=== PATIENT | female | born 1945 | race Caucasian/White ===

== ENCOUNTER 2024-09-13 09:53 | Inpatient (IN) ==
--- NOTE | 2024-09-13 09:59 | Emergency Department Note ---
HPI - Weakness General Chief complaint: Weakness Stated complaint: General Weakness Time Seen by Provider: 09/13/24 09:58 Source: patient and EMS Mode of arrival: ambulance Limitations: physical limitation Limitations comment: Right-sided BKA History of Present Illness HPI Narrative: Patient and EMS report that patient has been seated in wheelchair x 4 days and has not had care, patient reports she has not eaten or drank anything in 4 days, patient does have a open wound to her left lower leg that is actively draining with serous fluid. MD Complaint: Reports generalized weakness Onset (ago): day(s) (4) Duration: Reports constant Location: Reports generalized Migration: Reports none Severity: moderate Quality: Reports aching Relieving factors: Reports rest and movement Exacerbating factors: Reports exertion Context: Reports other (Patient with unintended by family members per patient) Associated symptoms: Reports dysuria, fever/chills, myalgias and other (Edema) Related Data Allergies Allergy/AdvReac Type Severity Reaction Status Date / Time nalbuphine (From Nubain) Allergy Unknown Verified 09/13/24 10:03 Review of Systems 2 Status of ROS 10 or more systems reviewed and unremark able except as noted in history and below Constitutional Reports: chills and fatigue; Denies: fever, change in weight, malaise, night sweats, change in sleep pattern or other Eyes Denies: change in vision, blurry vision, blind spots, light sensitivity, eye discomfort, eye discharge, dry eyes, increased production of tears, floaters, seeing flashes or decreased night vision Ears, nose, mouth, and throat Denies: throat pain, neck pain, throat swelling, difficulty swallowing, hoarseness, mouth pain, swelling of lips/tongue, dry mouth, bad breath, ear pain, ear discharge, change in hearing, tinnitus, vertigo, nasal discharge, nasal congestion, nose bleeds or post nasal drip Cardiovascular Reports: swelling of feet/ankles, shortness of breath with exertion and shortness of breath when lying down; Denies: chest pain, palpitations, edema, lightheadedness, leg pain with exertion or bluish discoloration of hands/feet Respiratory Reports: shortness of breath and chest congestion; Denies: cough, wheezing, stridor, pain on inspiration, change in phlegm color or coughing up blood Gastrointestinal Reports: abdominal pain and diarrhea; Denies: nausea, vomiting, coffee grounds in vomit, heartburn, constipation, bloating, belching, excessive passing of gas, difficulty swallowing, feeling full early, change in bowel habits, painful bowel movements, rectal pain, rectal swelling, rectal itching, change in stool character, blood in stool, mucus in stool, white/light colored stool or fatty stool Genitourinary Reports: painful urination, urinary frequency and urinary incontinence; Denies: urinary urgency, blood in urine, difficulty voiding, decreased urine ouput, pelvic pain, painful menstruation, vaginal bleeding, vaginal discharge, irregular period, change in menstrual flow, absence of menstruation, genital lesion, genital itching, vaginal dryness, vaginal odor, pain during intercourse, difficulty conceiving or change in libido Musculoskeletal Reports: extremity pain, extremity swelling, joint pain and muscle weakness; Denies: back pain, neck pain, limited range of motion, joint swelling, muscle cramps or loss of height Integumentary/Breast Reports: redness, skin pain, skin tenderness and sores; Denies: rash, itching, skin swelling, new lesion, changing lesion, non-healing lesion, changes in skin color, jaundice, stretch rubin, acne, nail changes, change in hair, breast pain, breast swelling, nipple discharge, breast mass, breast skin changes or change in breast shape Neurological Reports: weakness in extremities; Denies: headache, numbness in extremities, lack of coordination, dizziness, vertigo, confusion, behavioral changes, slurred speech, difficulty communicating thoughts, seizure-like activity or involuntary movements Psychiatric Reports: anxiety; Denies: mood swings, panic attacks, change in sleep pattern, hopelessness, loss of interest, irritability, paranoia, memory loss, difficulty concentrating, visual hallucinations, auditory hallucinations, tactile hallucinations, suicidal ideation or homicidal ideation Endocrine Denies: excessive urination, excessive thirst, fatigue, cold intolerance, excessive sweating, flushing, heat intolerance, deepening of the voice, change in body appearance or change in libido Hematologic/Lymphatic Denies: easy bruising, easy bleeding or enlarged lymph nodes Allergic/Immunologic Denies: hives, throat swelling, tongue swelling, facial swelling, wheezing, itchy eyes, seasonal allergies or food intolerance PFSH PFSH Social History Smoking status: never smoker Non-prescribed substance use: opiods/painkillers Feel stressed/tense/nervous/anxious/difficulty sleeping: rather much Life stressors: other (none) Life stressor details: Current medical condition Due to disability, difficulty making decisions: No Exam 2 Constitutional: normal general appearance, distress noted (moderate), abnormal body habitus (overweight), limitations noted (physical limitations) (Right leg BKA) and alert Vital Signs - 24 hr 09/13/24 09:53 09/13/24 10:00 09/13/24 11:45 Temperature 98.1 F Pulse Rate 95 H 98 H 100 H Respiratory Rate 18 18 18 Blood Pressure 130/66 130/66 173/81 Pulse Oximetry 98 98 98 Oxygen Delivery Me thod Room Air Room Air Room Air 09/13/24 12:00 09/13/24 12:36 Temperature Pulse Rate 98 H 104 H Respiratory Rate 18 Blood Pressure 178/81 184/85 Pulse Oximetry 98 Oxygen Delivery Me thod Room Air HENMT: normocephalic, head/scalp atraumatic, hearing grossly normal bilaterally, external ears normal, EACs normal, nasal mucous membranes normal, external nose normal, oral mucous membranes normal, oropharynx normal, dentition normal and gingiva normal Eyes: PERRL, EOMs intact bilaterally, conjunctivae normal, no scleral icterus, no papilledema, normal visual bowman by confrontation, alignment normal, periorbital findings normal and no nystagmus Neck/C-Spine: visual inspection normal, trachea midline, cervical spine nontender, cervical full ROM noted and supple Lymph: no lymphadenopathy noted and no lymphedema noted Chest: inspection of chest normal, palpation of chest normal, inspection of breast(s) abnormal (deferred) and palpation of breast(s) abnormal (deferred) Respiratory: breath sounds equal bilaterally, abnormal respiratory effort (labored), clear to auscultation bilaterally, no wheezes, no rales, no retractions and no use of accessory muscles Cardiovascular: heart rate abnormal (110) (tachycardic), rhythm abnormal (irregular), no gallop, no rub, no murmur, no JVD, no clicks, peripheral pulses 2+ throughout and no additional abnormal heart sounds Gastrointestinal: abdomen normal to inspection, abdomen soft to palpation, tender to palpation, nontender to percussion, nondistended, normoactive bowel sounds, no hepatosplenomegaly, no masses, no pulsatile mass, no ascites, no hernia and rectal exam abnormal (deferred) Patient has edema noted to the lower abdomen with excoriation of the skin, patient smelled strongly of urine after being left sitting in wheelchair for 4 days without care. Patient has been cleaned wounds have been cleaned. Patient has +2 pitting edema of the abdomen on the left side. Genitourinary: no CVA tenderness, bladder normal to palpation, vaginal abnormality noted (deferred) and cervical abnormality noted (deferred) Back/Pelvis: spine normal to inspection, no thoracic spine tenderness, no lumbar spine tenderness, thoracic spine ROM normal, lumbar spine ROM normal and no paraspinal muscle tenderness noted Extremities: normal to inspection, abnormal to palpation, tenderness noted, full ROM, no joint enlargement and no deformity Patient has +3 pitting edema to the left lower extremity with noted draining wound, cellulitis present, her leg is erythemic and tender to palpation. Neurology: cra II-XII intact, no movement abnormality noted, no focal motor deficit noted, no sensory deficits noted, gait abnormality noted (unable to access), speech normal, coordination normal, no pronator drift noted, no fasciculations noted and GCS normal Psychiatry: Mental Status Exam documented within this Exam's Psych section mental status grossly normal, oriented x3, thought process normal, cooperative, affect normal, psychomotor activity normal and memory normal Feel stressed/tense/nervous/anxious/difficulty sleeping: rather much Life stressors: other (none) Life stressor details: Current medical condition Due to disability, difficulty making decisions: No Skin: skin color abnormal (Left lower leg) Reports (erythema), no rash, no lesions, no ecchymosis noted, no wounds, no lacerations, skin turgor normal, no jaundice, no petechiae, no mottling, nails normal and no alopecia Patient has a noted pressure wound to the Right buttock, cellulitis of the left lower extremity with draining from the wound noted, pitting edema up through the left leg into the left thigh and lower left abdomen. Image: Body (4 view): 1. Pressure wound 2. Erythema, cellulitis, drainage Course Course Hospital Course: 78-year-old female presented to ER via EMS with complaint of generalized weakness, cellulitis of the left lower leg, and being left without care x 4 days by her straw hat brusher has been evaluated by physical exam, CBC, CMP, urinalysis, blood culture, wound culture, EKG, ABG, plain film chest x-ray, and hemoglobin A1c with results as noted in charting. Patient's CBC reveals leukocytosis at 13.5 white count, CMP reveals hypoalbuminemia at 2.6, acute kidney injury with BUN of 32, urinalysis reveals UTI with leukoesterase and nitrite positive, patient's lactic acid is elevated at 2.5, and patient is EKG reveals atrial field and a rate of 110 as a result of patient not receiving her Cardizem at home x 4 days. [facility] with diagnosis of urinary tract infection, sepsis, leukocytosis, acute kidney injury, Cellulitis, hypoalbuminemia, and atrial fib. EMS has notified law enforcement concern is patient for referral to Adult Protective Services. Vital Signs Vital signs: Vital Signs Temperature 98.1 F 09/13/24 09:53 Pulse Rate 95 H 09/13/24 09:53 Respiratory Rate 18 09/13/24 09:53 Blood Pressure 130/66 09/13/24 09:53 Pulse Oximetry 98 09/13/24 09:53 Oxygen Delivery Method Room Air 09/13/24 09:53 Temperature 98.1 F 09/13/24 09:53 Pulse Rate 104 H 09/13/24 12:36 Respiratory Rate 18 09/13/24 12:00 Blood Pressure 184/85 09/13/24 12:36 Pulse Oximetry 98 09/13/24 12:00 Oxygen Delivery Method Room Air 09/13/24 12:00 MDM - Weakness MDM Narrative Medical decision making narrative: Medical Decision Making this patient above physical exam, CBC, CMP, urinalysis, EKG, troponin, lactic acid, ABG, blood culture, wound culture, hemoglobin A1c, and plain film chest x-ray. Differential Diagnosis Differential diagnosis: Likely acute myocardial infarction, rhabdomyolysis, sepsis, dehydration and other (Cellulitis, peripheral edema) Medical Records Attestation: I reviewed the patient's medical records. Lab Data Attestation: I reviewed the patient's lab results. Labs: Lab Results 09/13/24 09/13/24 09/13/24 Range/Units 10:26 10:31 10:31 WBC (4.3-9.3) K/uL RBC (4.00-5.50) M/uL Hgb (12.5-15.8) gm/dL Hct (35.9-46.7) % MCV (81.0-93.7) fl MCH (27.6-32.2) pg MCHC (33.1-35.3) g/dl RDW (11.4-14.2) % Plt Count (152-353) K/uL MPV (6.9-10.8) fl Gran % (47.8-71.3) % Lymph % (Auto) (20.0-43.0) % [place]enson % (Auto) (3.6-9.8) % Eos % (Auto) (0.4-2.8) % Baso % (Auto) (0.1-0.85) Lymph # (Auto) (1.1-3.1) Dickenson # (Auto) (1.1-3.1) Eos # (Auto) (0.0-0.2) Baso # (Auto) (0.0-0.1) Absolute Gran (auto) (2.3-6.0) ABG pH 7.50 H (7.35-7.45) ABG pCO2 42 (35-45) mmHg ABG pO2 101 H 147 (60-100) mmHg ABG PO2/FiO2 Ratio 0.69 ABG HCO3 32.8 H (22-26) mmo1/L ABG Total CO2 34.1 mmo1/L ABG O2 Saturation 98 (92-100) % ABG Base Excess 8.7 H (-2-2) mmo1/L A-a O2 Gradient 46 mmHg Respiratory Index 0.5 (0-1) FiO2 28 % Sodium (136-145) mmol/L Potassium (3.6-5.2) mmol/L Chloride (98-107) mmol/L Carbon Dioxide (21-32) mmol/L Anion Gap (4-14) mEq/L BUN (7-18) mg/dL Creatinine (0.6-1.3) mg/dL Estimated GFR (>59.9) Glucose (70-110) mg/dL Hemoglobin A1c (4.8-6.0) % Lactic Acid (0.27-1.43) mmol/L Calcium (8.5-10.1) mg/dL Magnesium (1.8-2.4) mg/dL Total Bilirubin (0.0-1.0) mg/dL AST (15-37) U/L ALT (30-65) U/L Alkaline Phosphatase (50-136) U/L Total Creatine Kinase (26-192) U/L Troponin I High Sens (4.0-60.4) ng/L B-Natriuretic Peptide (0-100) pg/mL Total Protein (6.4-8.2) g/dL Albumin (3.4-5.0) g/dL Urine Color Yellow (STRAW/YELL.) Urine Appearance Hazy (CLEAR) Ur Specific [place] 1.030 (1.001-1.035) Urine Protein 1+ (NEGATIVE) Urine Glucose (UA) Normal (NORMAL) Urine Ketones Negative (NEGATIVE) Urine Occult Blood Trace (NEG - TRACE) Urine Nitrite Negative (NEGATIVE) Urine Bilirubin Negative (NEGATIVE) Urine Urobilinogen Normal (NORMAL) Ur Leukocyte Esterase Positive (NEGATIVE) Urine RBC 0 - 2 (0 - 5) Urine WBC 10 - 25 ( 0 - 5) Ur Epithelial Cells Few (Few/HPF) Amorphous Sediment Negative (Negative) Urine Bacteria Many (Negative) Urine Mucus Negative (Negative) Urine Trichomonas Negative (Negative) Urine Yeast Negative (Negative) Fluid pH 6.0 (5 - 9) 09/13/24 09/13/24 Range/Units 10:35 10:50 WBC 13.5 H (4.3-9.3) K/uL RBC 4.0 (4.00-5.50) M/uL Hgb 11.1 L (12.5-15.8) gm/dL Hct 35.0 L (35.9-46.7) % MCV 86.8 (81.0-93.7) fl MCH 27.6 (27.6-32.2) pg MCHC 31.8 L (33.1-35.3) g/dl RDW 18.1 H (11.4-14.2) % Plt Count 240 (152-353) K/uL MPV 7.8 (6.9-10.8) fl Gran % 82.3 H (47.8-71.3) % Lymph % (Auto) 12.4 L (20.0-43.0) % Dickenson % (Auto) 4.6 (3.6-9.8) % Eos % (Auto) 0.2 L (0.4-2.8) % Baso % (Auto) 0.5 (0.1-0.85) Lymph # (Auto) 1.7 (1.1-3.1) Dickenson # (Auto) 0.6 L (1.1-3.1) Eos # (Auto) 0.0 (0.0-0.2) Baso # (Auto) 0.1 (0.0-0.1) Absolute Gran (auto) 11.1 H (2.3-6.0) ABG pH (7.35-7.45) ABG pCO2 (35-45) mmHg ABG pO2 (60-100) mmHg ABG PO2/FiO2 Ratio ABG HCO3 (22-26) mmo1/L ABG Total CO2 mmo1/L ABG O2 Saturation (92-100) % ABG Base Excess (-2-2) mmo1/L A-a O2 Gradient mmHg Respiratory Index (0-1) FiO2 % Sodium 139 (136-145) mmol/L Potassium 4.3 (3.6-5.2) mmol/L Chloride 103.0 (98-107) mmol/L Carbon Dioxide 33 H (21-32) mmol/L Anion Gap 3.0 L (4-14) mEq/L BUN 32 H (7-18) mg/dL Creatinine 1.1 (0.6-1.3) mg/dL Estimated GFR 52.1 (>59.9) Glucose 126 H (70-110) mg/dL Hemoglobin A1c 6.8 H (4.8-6.0) % Lactic Acid 2.7 H (0.27-1.43) mmol/L Calcium 8.5 (8.5-10.1) mg/dL Magnesium 2.5 H (1.8-2.4) mg/dL Total Bilirubin 1.43 H (0.0-1.0) mg/dL AST 21 (15-37) U/L ALT 31 (30-65) U/L Alkaline Phosphatase 98 (50-136) U/L Total Creatine Kinase 62 (26-192) U/L Troponin I High Sens 42.80 (4.0-60.4) ng/L B-Natriuretic Peptide 91.2 (0-100) pg/mL Total Protein 6.2 L (6.4-8.2) g/dL Albumin 2.6 L (3.4-5.0) g/dL Urine Color (STRAW/YELL.) Urine Appearance (CLEAR) Ur Specific [place] (1.001-1.035) Urine Protein (NEGATIVE) Urine Glucose (UA) (NORMAL) Urine Ketones (NEGATIVE) Urine Occult Blood (NEG - TRACE) Urine Nitrite (NEGATIVE) Urine Bilirubin (NEGATIVE) Urine Urobilinogen (NORMAL) Ur Leukocyte Esterase (NEGATIVE) Urine RBC (0 - 5) Urine WBC ( 0 - 5) Ur Epithelial Cells (Few/HPF) Amorphous Sediment (Negative) Urine Bacteria (Negative) Urine Mucus (Negative) Urine Trichomonas (Negative) Urine Yeast (Negative) Fluid pH (5 - 9) Discharge Plan Discharge Patient Disposition: Admitted As Observation Condition: Stable Chief Complaint: Weakness Clinical Impression: Sepsis, Urinary tract infection, Cellulitis and abscess of left leg, Hypoalbuminemia, Acute kidney injury, Leukocytosis, Decubitus skin ulcer Print Language: Irish Referrals: Provider,NO PCP [Primary Care Provider] - Time of Disposition: 12:00
[2024-09-13 10:52] LABS: Urine Appearance HAZY (CLEAR); Urine Blood TRACE (NEG - TRACE); Urine Color YELLOW (STRAW/YELL.); Urine Urobilinogen Normal (NORMAL)
[2024-09-13 10:53] LABS: Urine Amorphous Sediment Negative (Negative); Urine Yeast Negative (Negative)
[2024-09-13 10:58] LABS: Basophils #(Absolute) Auto 0.1 (0.0-0.1); Basophils%(Percent) Auto 0.5 (0.1-0.85); Eosinophils%(Percent) Auto 0.2 % (0.4-2.8); Granulocytes % - Auto 82.3 % (47.8-71.3); Granulocytes#(Absolute)- Auto 11.1 (2.3-6.0); Mean Corpuscular Volume 86.8 fl (81.0-93.7); Monocytes #(Absolute)- Auto 0.6 (1.1-3.1); Monocytes %(Percent)- Auto 4.6 % (3.6-9.8); Platelet Count 240 K/uL (152-353); White Blood Count 13.5 K/uL (4.3-9.3)
[2024-09-13 10:58] LABS: PCO2 ABG 42 mmHg (35-45); PO2 ABG 101 mmHg (60-100)
[2024-09-13 10:59] LABS: Base Excess ABG 8.7 mmo1/L (-2-2); Oxygen Saturation ABG 98 % (92-100)
[2024-09-13 11:08] LABS: Potassium 4.3 mmol/L (3.6-5.2)
[2024-09-13] MEDS ORDERED: 0.9 % SODIUM CHLORIDE MB+ 50 ML IV ONE (11:34)
[2024-09-13] MEDS ORDERED: MEROPENEM 1 GM VIAL IV ONE (11:34)
[2024-09-13] MEDS: MEROPENEM 1 GM VIAL 1 GM in 0.9 % SODIUM CHLORIDE MB+ 50 ML IV STA (11:37)
[2024-09-13] MEDS ORDERED: ALBUMIN HUMAN 25% 100 ML IV SCH (12:00)
[2024-09-13] MEDS ORDERED: ALBUMIN HUMAN 25% 100 ML IV ONE (12:04)
[2024-09-13] MEDS: ALBUMIN HUMAN 25% 100 ML IV ONE (12:06)
[2024-09-13] MEDS: DILTIAZEM HCL 180 MG PO STA ×2 (12:36→12:52)
[2024-09-13] MEDS ORDERED: bisacodyL 10 MG SUPP.RECT PR PRN (14:00)
[2024-09-13] MEDS ORDERED: PROMETHAZINE HCL 25 MG in 0.9 % SODIUM CHLORIDE 50 ML IV PRN (14:00)
[2024-09-13] MEDS ORDERED: ONDANSETRON HCL/PF 4 MG/2 ML VIAL INJ PRN (14:00)
[2024-09-13] MEDS ORDERED: MAGNESIUM, ALUMINUM HYDROXIDE 30 ML ORAL.SUSP PO PRN (14:00)
[2024-09-13] MEDS: PANTOPRAZOLE SODIUM 40 MG VIAL IVP SCH (14:27)
[2024-09-13] MEDS: CLINDAMYCIN PHOSPHATE/D5W 300 MG/50 ML PIGGYBACK IV SCH (14:27)
[2024-09-13] MEDS: ALBUMIN HUMAN 25% 100 ML IV SCH ×2 (14:27→16:07)
[2024-09-13] MEDS: KETOROLAC 30 MG/ML INJ VIAL IVP PRN (14:28)
--- NOTE | 2024-09-13 14:41 | History & Physical Report ---
H&P: HPI History of Present Illness Chief complaint: SEPSIS,UTI,LEUKOCYTOSIS,CELLULITIS,ACUTE KIDNEY IN Narrative: Patient and EMS report that patient has been seated in wheelchair x 4 days and has not had care, patient reports she has not eaten or drank anything in 4 days, patient does have a open wound to her left lower leg that is actively draining with serous fluid. Admitted patient to med/surg for observation and treatment. Review of Systems Status of ROS 10 or more systems reviewed and unremark able except as noted in history and below Constitutional Reports: chills; Denies: fever, change in weight, fatigue, malaise, night sweats, change in sleep pattern or other Eyes Denies: change in vision, blurry vision, blind spots, light sensitivity, eye discomfort, eye discharge, dry eyes, increased production of tears, floaters, seeing flashes or decreased night vision Ears, nose, mouth, and throat Denies: throat pain, neck pain, throat swelling, difficulty swallowing, hoarseness, mouth pain, swelling of lips/tongue, dry mouth, bad breath, ear pain, ear discharge, change in hearing, tinnitus, vertigo, nasal discharge, nasal congestion, nose bleeds or post nasal drip Cardiovascular Reports: swelling of feet/ankles, shortness of breath with exertion and shortness of breath when lying down; Denies: chest pain, palpitations, edema, lightheadedness, leg pain with exertion or bluish discoloration of hands/feet Respiratory Reports: shortness of breath and chest congestion; Denies: cough, wheezing, stridor, pain on inspiration, change in phlegm color or coughing up blood Gastrointestinal Reports: abdominal pain and diarrhea; Denies: nausea, vo miting, coffee grounds in vomit, heartburn, constipation, bloating, belching, excessive passing of gas, difficulty swallowing, feeling full early, change in bowel habits, painful bowel movements, rectal pain, rectal swelling, rectal itching, change in stool character, blood in stool, mucus in stool, white/light colored stool or fatty stool Genitourinary Reports: painful urination, urinary frequency and urinary incontinence; Denies: urinary urgency, blood in urine, difficulty voiding, decreased urine ouput, pelvic pain, painful menstruation, vaginal bleeding, vaginal discharge, irregular period, change in menstrual flow, absence of menstruation, genital lesion, genital itching, vaginal dryness, vaginal odor, pain during intercourse, difficulty conceiving or change in libido Musculoskeletal Reports: extremity pain, extremity swelling, joint pain and muscle weakness; Denies: back pain, neck pain, limited range of motion, joint swelling, muscle cramps or loss of height Integumentary/Breast Reports: redness, skin pain, skin tenderness and sores; Denies: rash, itching, skin swelling, new lesion, changing lesion, non-healing lesion, changes in skin color, jaundice, stretch rubin, acne, nail changes, change in hair, breast pain, breast swelling, nipple discharge, breast mass, breast skin changes or change in breast shape Neurological Reports: weakness in extremities; Denies: headache, numbness in extremities, lack of coordination, dizziness, vertigo, confusion, behavioral changes, slurred speech, difficulty communicating thoughts, seizure-like activity or involuntary movements Psychiatric Reports: anxiety; Denies: mood swings, panic attacks, change in sleep pattern, hopelessness, loss of interest, irritability, paranoia, memory loss, difficulty concentrating, visual hallucinations, auditory hallucinations, tactile hallucinations, suicidal ideation or homicidal ideation Endocrine Denies: excessive urination, excessive thirst, fatigue, cold intolerance, excessive sweating, flushing, heat intolerance, deepening of the voice, change in body appearance or change in libido Hematologic/Lymphatic Denies: easy bruising, easy bleeding or enlarged lymph nodes Allergic/Immunologic Denies: hives, throat swelling, tongue swelling, facial swelling, wheezing, itchy eyes, seasonal allergies or food intolerance [facility] Medical History (Updated 09/13/24 @ 20:42 by Yumiko Shannon DO) Chronic systolic (congestive) heart failure Physical debility Anxiety 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 Hypertension (Unknown) GERD with esophagitis Morbid obesity Surgical History (Updated 09/13/24 @ 20:37 by Yumiko Shannon DO) History of right above knee amputation Social History Smoking status: never smoker Non-prescribed substance use: opiods/painkillers Problems where you live: no known problems Highest level of school completed/degree received: College Feel stressed/tense/nervous/anxious/difficulty sleeping: rather much Life stressors: other (none) Life stressor details: Current medical condition Due to disability, difficulty making decisions: No Meds Home Medications and Allergies Home Medications Medication Instructions Recorded Confirmed Type alprazolam 0.5 mg tablet 0.5 mg PO BID PRN ANXIETY AND 09/13/24 09/13/24 History RESTLESSNESS dexamethasone 4 mg tablet 4 mg PO DAILY 09/13/24 09/13/24 History diltiazem HCl 180 mg 180 mg PO DAILY 09/13/24 09/13/24 History capsule,extended release 24 hr escitalopram oxalate 20 mg tablet 20 mg PO DAILY 09/13/24 09/13/24 History furosemide 40 mg tablet 40 mg PO DAILY 09/13/24 09/13/24 History gabapentin 100 mg capsule 100 mg PO Q8H 09/13/24 09/13/24 History methadone 10 mg tablet 10 mg PO QID PRN severe pain 09/13/24 09/13/24 History (scale score 7-10) omeprazole 20 mg capsule,delayed 20 mg PO BID 09/13/24 09/13/24 History release silver sulfadiazine 1 % topical 1 applic topical BID 09/13/24 09/13/24 History cream Allergies Allergy/AdvReac Type Severity Reaction Status Date / Time nalbuphine (From Kybernesis) Allergy Unknown Verified 09/13/24 10:03 Exam Exam: Patient in beard's position. Constitutional: normal general appearance, distress noted (moderate), abnormal body habitus (overweight), limitations noted (physical limitations) (Right leg BKA) and alert Vital Signs - 24 hr 09/13/24 09:53 09/13/24 10:00 09/13/24 11:45 Temperature 98.1 F Pulse Rate 95 H 98 H 100 H Respiratory Rate 18 18 18 Blood Pressure 130/66 130/66 173/81 Pulse Oximetry 98 98 98 Oxygen Delivery Me thod Room Air Room Air Room Air 09/13/24 12:00 09/13/24 12:36 09/13/24 13:52 Temperature Pulse Rate 98 H 104 H 98 H Respiratory Rate 18 18 Blood Pressure 178/81 184/85 162/85 Pulse Oximetry 98 98 Oxygen Delivery Me thod Room Air HENMT: normocephalic, head/scalp atraumatic, hearing grossly normal bilaterally, external ears normal, EACs normal, nasal mucous membranes normal, external nose normal, oral mucous membranes normal, oropharynx normal, dentition normal and gingiva normal Eyes: PERRL, EOMs intact bilaterally, conjunctivae normal, no scleral icterus, no papilledema, normal visual bowman by confrontation, alignment normal, periorbital findings normal and no nystagmus Neck/C-Spine: visual inspection normal, trachea midline, cervical spine nontender, cervical full ROM noted and supple Lymph: no lymphadenopathy noted and no lymphedema noted Chest: inspection of chest normal, palpation of chest normal, inspection of breast(s) abnormal (deferred) and palpation of breast(s) abnormal (deferred) Respiratory: breath sounds equal bilaterally, abnormal respiratory effort (labored), clear to auscultation bilaterally, no wheezes, no rales, no retractions and no use of accessory muscles Cardiovascular: heart rate abnormal (tachycardic), rhythm abnormal (irregular), no gallop, no rub, no murmur, no JVD, no clicks, peripheral pulses 2+ throughout and no additional abnormal heart sounds Gastrointestinal: abdomen normal to inspection, abdomen soft to palpation, tender to palpation, nontender to percussion, nondistended, normoactive bowel sounds, no hepatosplenomegaly, no masses, no pulsatile mass, no ascites, no hernia and rectal exam abnormal (deferred) Patient has edema noted to the lower abdomen with excoriation of the skin, pa tient smelled strongly of urine after being left sitting in wheelchair for 4 days without care. Patient has been cleaned wounds have been cleaned. Patient has +2 pitting edema of the abdomen on the left side. Genitourinary: no CVA tenderness, bladder normal to palpation, external appearance normal, vaginal abnormality noted (deferred) and cervical abnormality noted (deferred) Back/Pelvis: spine normal to inspection, no thoracic spine tenderness, no lumbar spine tenderness, thoracic spine ROM normal, lumbar spine ROM normal, no paraspinal muscle tenderness noted and straight leg raise negative bilaterally Extremities: normal to inspection, abnormal to palpation, tenderness noted, full ROM, no joint enlargement and no deformity Patient has +3 pitting edema to the left lower extremity with noted draining wound, cellulitis present, her leg is erythemic and tender to palpation. Neurology: call center recruiter II-XII intact, no movement abnormality noted, no focal motor deficit noted, no sensory deficits noted, deep tendon reflexes 2+ bilaterally, gait abnormality noted (unable to access), speech normal, coordination normal, no pronator drift noted, no fasciculations noted and GCS normal Psychiatry: Mental Status Exam documented within this Exam's Psych section mental status grossly normal, oriented x3, thought process normal, cooperative, affect normal, psychomotor activity normal and memory normal Skin: skin color abnormal (Left lower leg) Reports (erythema), no rash, no lesions, no ecchymosis noted, no wounds, no lacerations, skin turgor normal, no jaundice, no petechiae, no mottling, nails normal and no alopecia Patient has a noted pressure wound to the Right buttock, cellulitis of the left lower extremity with draining from the wound noted, pitting edema up through the left leg into the left thigh and lower left abdomen. Assessment and Plan Assessment and Plan (1) UTI (urinary tract infection): Qualifiers: Hematuria presence: with hematuria Urinary tract infection type: site unspecified Qualified Code(s): N39.0 - Urinary tract infection, site not specified; R31.9 - Hematuria, unspecified Code(s): N39.0 - Urinary tract infection, site not specified (2) Cellulitis of left lower extremity: Code(s): L03.116 - Cellulitis of left lower limb (3) ARF (acute respiratory failure): Qualifiers: Respiratory failure complication: unspecified whether with hypoxia or hypercapnia Qualified Code(s): J96.00 - Acute respiratory failure, unspecified whether with hypoxia or hypercapnia Code(s): J96.00 - Acute respiratory failure, unspecified whether with hypoxia or hypercapnia (4) Atrial fibrillation with RVR: Code(s): I48.91 - Unspecified atrial fibrillation (5) Morbid obesity: Code(s): E66.01 - Morbid (severe) obesity due to excess calories (6) Sinus tachycardia: Code(s): R00.0 - Tachycardia, unspecified (7) GERD with esophagitis: Qualifiers: Esophagitis bleeding: without hemorrhage Qualified Code(s): K21.00 - Gastro-esophageal reflux disease with esophagitis, without bleeding Code(s): K21.00 - Gastro-esophageal reflux disease with esophagitis, without bleeding (8) Hypertension: Onset Date: Unknown Qualifiers: Hypertension type: primary hypertension Qualified Code(s): I10 - Essential (primary) hypertension Code(s): I10 - Essential (primary) hypertension (9) 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: Code(s): Z91.148 - Patient's other noncompliance with medication regimen for other reason (10) Anxiety: Code(s): F41.9 - Anxiety disorder, unspecified (11) Confusion: Code(s): R41.0 - Disorientation, unspecified (12) Physical debility: Code(s): R53.81 - Other malaise Plan 0.9% NS at 83 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 Albumin 100 mls @ 60 mls/hr IV Q2H neuro checks every 4 hours and prn clean left leg and elevate and compression wrap as tolerated TSH, BNPeptie, CBC, CMP, MAG, PHOS in the am Pantoprazole Sodium 40 mg IVP DAILY Meropenem 1 gm in Sodium Chloride 50mls @ 100 mls/hr IV Q8H Clindamycin Phosphate/Dextrose 300 mg in 50 mls @ 50 mls/hr IV Q6H Magnesium Hydroxide 30 ml PO DAILY PRN Bisacodyl 10 mg UT DAILY PRN Ketorolac Tromethamine 15 mg IVP Q6H PRN Ondansetron Hcl 4 mg INJ Q6H PRN Promethazine Hcl 25 mg in Sodium Chloride 51 mls @ 200 mls/hr IV Q8H PRN Acetaminophen 1,000 mg in 100 mls @ 400 mls/hr IV Q6H PRN Results Labs Labs: CBC 09/13/24 Range/Units 10:35 WBC 13.5 H (4.3-9.3) K/uL RBC 4.0 (4.00-5.50) M/uL Hgb 11.1 L (12.5-15.8) gm/dL Hct 35.0 L (35.9-46.7) % Plt Count 240 (152-353) K/uL Gran % 82.3 H (47.8-71.3) % Lymph % (Auto) 12.4 L (20.0-43.0) % [place] % (Auto) 4.6 (3.6-9.8) % Eos % (Auto) 0.2 L (0.4-2.8) % Baso % (Auto) 0.5 (0.1-0.85) Lymph # (Auto) 1.7 (1.1-3.1) [place] # (Auto) 0.6 L (1.1-3.1) Eos # (Auto) 0.0 (0.0-0.2) Baso # (Auto) 0.1 (0.0-0.1) Absolute Gran (auto) 11.1 H (2.3-6.0) CMP 09/13/24 10:35 Sodium 139 Potassium 4.3 Chloride 103.0 Carbon Dioxide 33 H BUN 32 H Creatinine 1.1 Glucose 126 H Calcium 8.5 Cardiac Enzymes 09/13/24 10:35 Total Creatine Kinase 62 Liver Function 09/13/24 Range/Units 10:35 Total Bilirubin 1.43 H (0.0-1.0) mg/dL AST 21 (15-37) U/L ALT 31 (30-65) U/L Alkaline Phosphatase 98 (50-136) U/L Albumin 2.6 L (3.4-5.0) g/dL Urine 09/13/24 10:26 Urine Color Yellow Urine Appearance Hazy Ur Specific [place] 1.030 Urine Protein 1+ Urine Glucose (UA) Normal ABG ABG results: 09/13/24 10:31 ABG pH 7.50 H ABG pCO2 42 ABG pO2 147 ABG HCO3 32.8 H ABG Total CO2 34.1 ABG O2 Saturation 98 ABG Base Excess 8.7 H Imaging Imaging ordered: Chest x-ray Radiologist's impression: XR CHEST 1V Date of Service: 09/13/24 HISTORY: dyspneadyspnea; COMPARISON: January 13, 2023 FINDINGS: The trachea is midline. The cardiac silhouette is borderline or mildly enlarged. The lungs are clear without focal infiltrate or effusion. The bony thorax is unremarkable. IMPRESSION: No acute cardiopulmonary disease.
[2024-09-13] MEDS: MEPERIDINE HCL/PF 25 MG/ML SYRINGE IVP PRN (19:50)
[2024-09-13] MEDS: MEROPENEM 1 GM VIAL 1 GM in 0.9 % SODIUM CHLORIDE MB+ 50 ML IV SCH (19:50)
[2024-09-13] MEDS: 0.9 % SODIUM CHLORIDE 1000 ML 1,000 ML IV SCH (21:06)
[2024-09-13] MEDS: GABAPENTIN 100 MG CAPSULE PO SCH (21:06)
[2024-09-13] MEDS: ACETAMINOPHEN 1000 MG/100 ML 1,000 MG/100 ML IV.SOLN IV PRN (23:18)
[2024-09-14 05:16] LABS: Basophils%(Percent) Auto 0.3 (0.1-0.85); Eosinophils%(Percent) Auto 0.5 % (0.4-2.8); Granulocytes % - Auto 79.5 % (47.8-71.3); Hematocrit 24.4 % (35.9-46.7); Mean Corpuscular Volume 86.3 fl (81.0-93.7); Monocytes #(Absolute)- Auto 0.3 (1.1-3.1); Monocytes %(Percent)- Auto 4.1 % (3.6-9.8); Platelet Count 131 K/uL (152-353); White Blood Count 7.6 K/uL (4.3-9.3)
[2024-09-14 05:36] LABS: Potassium 3.8 mmol/L (3.6-5.2)
[2024-09-14] MEDS: ESCITALOPRAM OXALATE 10 MG TABLET PO SCH (08:56)
[2024-09-14] MEDS: DILTIAZEM HCL 180 MG PO SCH (08:56)
[2024-09-14] MEDS ORDERED: ESCITALOPRAM OXALATE 20 MG PO SCH (09:00)
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
[2024-09-14] MEDS: VANCOMYCIN HCL 1,000 MG in 0.9 % SODIUM CHLORIDE 250 ML IV SCH (11:31)
[2024-09-14] MEDS: NYSTATIN 15 GM POWDER TOPICAL SCH (12:03)
[2024-09-14] MEDS: FLUCONAZOLE-NACL 200 MG/100 ML 200 MG/100 ML PIGGYBACK IV SCH (12:03)
[2024-09-14] MEDS: VANCOMYCIN/WATER 1.25 GM 1.25 GM/250 ML PIGGYBACK IV SCH (13:10)
[2024-09-14] MEDS: MEROPENEM 1 GM VIAL 1 GM in 0.9 % SODIUM CHLORIDE MB+ 50 ML IV SCH (20:26)
[2024-09-15 07:07] LABS: Basophils%(Percent) Auto 0.4 (0.1-0.85); Eosinophils#(Absolute)Auto 0.1 (0.0-0.2); Granulocytes % - Auto 70.5 % (47.8-71.3); Granulocytes#(Absolute)- Auto 4.8 (2.3-6.0); Mean Corpuscular Volume 87.4 fl (81.0-93.7); Monocytes #(Absolute)- Auto 0.4 (1.1-3.1); Monocytes %(Percent)- Auto 6.3 % (3.6-9.8); Platelet Count 125 K/uL (152-353); White Blood Count 6.9 K/uL (4.3-9.3)
[2024-09-15 07:16] LABS: Potassium 3.5 mmol/L (3.6-5.2)
[2024-09-15] MEDS: ALBUMIN HUMAN 25% 100 ML IV SCH (09:35)
[2024-09-15] MEDS: POTASSIUM CHLORIDE 20 MEQ TAB.ER.PRT PO ONE (09:36)
--- NOTE | 2024-09-15 11:17 | Progress Note ---
Progress Note: Subjective Subjective Interval history: Hospital day 4 Patient had an uneventful night. She is requesting "Methadone", stating she is use to taking that 4 times a day. MRI reflects infection is not in bones so no osteomyelitis Patient continues to wear unaboots remain afebrile and more alert and talking more coherently at this time. still agreeing to rehab once she is approved Exam 2 Exam: Patient in supine position with RED HAT ENGINEER at bedside changing brief. Constitutional: abnormal general appearance (disheveled), (chronically ill) and (frail appearing), no apparent distress, abnormal body habitus (obese), limitations noted (physical limitations) (Right leg BKA) and alert Vital Signs - 24 hr 09/14/24 12:00 09/14/24 16:00 09/14/24 19:50 Temperature 97.9 F 98.2 F 100.1 F H Pulse Rate [Left F emoral] 84 67 76 Respiratory Rate 19 18 19 Blood Pressure [Le ft Arm] 106/46 125/56 119/69 Pulse Oximetry 100 Oxygen Delivery Me thod Room Air Room Air Room Air 09/14/24 23:42 09/15/24 03:43 09/15/24 08:00 Temperature 99.4 F 98.7 F 97.6 F Pulse Rate [Left F emoral] 83 87 81 Respiratory Rate 19 21 19 Blood Pressure [Le ft Arm] 115/50 111/61 128/50 Pulse Oximetry 94 L 100 90 L Oxygen Delivery Me thod Room Air Room Air Room Air HENMT: normocephalic, head/scalp atraumatic, hearing grossly normal bilaterally, external ears normal, EACs normal, nasal mucous membranes normal, external nose normal, oral mucous membranes normal, oropharynx normal, dentition normal and gingiva normal Eyes: PERRL, EOMs intact bilaterally, conjunctivae normal, no scleral icterus, no papilledema, normal visual bowman by confrontation, alignment normal, periorbital findings normal and no nystagmus Neck/C-Spine: visual inspection normal, trachea midline, cervical spine nontender, cervical full ROM noted and supple Lymph: no lymphadenopathy noted and no lymphedema noted Chest: inspection of chest normal and palpation of chest normal Respiratory: breath sounds equal bilaterally, abnormal respiratory effort (labored), clear to auscultation bilaterally, no wheezes, no rales, no retractions and no use of accessory muscles Cardiovascular: normal heart rate noted, rhythm abnormal (irregular), no gallop, no rub, no murmur, no JVD, no clicks, peripheral pulses 2+ throughout and no additional abnormal heart sounds Gastrointestinal: abdomen normal to inspection, abdomen soft to palpation, nontender to percussion, nondistended, normoactive bowel sounds, no hepatosplenomegaly, no masses, no pulsatile mass, no ascites and no hernia Genitourinary: no CVA tenderness, bladder normal to palpation and external appearance normal Back/Pelvis: spine normal to inspection, no thoracic spine tenderness, no lumbar spine tenderness, thoracic spine ROM normal, lumbar spine ROM normal, no paraspinal muscle tenderness noted and straight leg raise negative bilaterally Extremities: abnormal to inspection, abnormal to palpation, tenderness noted, full ROM, no joint enlargement and no deformity Edema improved. Neurology: twister operator II-XII intact, no movement abnormality noted, no focal motor deficit noted, no sensory deficits noted, deep tendon reflexes 2+ bilaterally, gait abnormality noted (unable to access), speech normal, coordination normal, no pronator drift noted, no fasciculations noted and GCS normal Psychiatry: Mental Status Exam documented within this Exam's Psych section mental status grossly normal, oriented x3, thought process normal, cooperative, affect normal, psychomotor activity normal and memory normal Feel stressed/tense/nervous/anxious/difficulty sleeping: rather much Life stressors: other Life stressor details: current health and need for rehab Skin: skin color abnormal (Left lower leg) Reports (erythema), no rash, no lesions, no ecchymosis noted, wound(s) noted (See pictures), no lacerations, skin turgor normal, no jaundice, no petechiae, no mottling, nails normal and no alopecia Patient has noted cellulitis of the left lower extremity with draining from the wound noted, pitting edema, improved, up through the left leg into the left thigh and lower left abdomen. Image: RLE 09/14/24 LLE 09/14/24 no new pics today emilia boot in place Progress Note: Objective Labs Labs: CBC 09/15/24 Range/Units 06:30 WBC 6.9 (4.3-9.3) K/uL RBC 2.9 L (4.00-5.50) M/uL Hgb 8.2 L (12.5-15.8) gm/dL Hct 25.0 L (35.9-46.7) % Plt Count 125 L (152-353) K/uL Gran % 70.5 (47.8-71.3) % Lymph % (Auto) 21.8 (20.0-43.0) % [place] % (Auto) 6.3 (3.6-9.8) % Eos % (Auto) 1.0 (0.4-2.8) % Baso % (Auto) 0.4 (0.1-0.85) Lymph # (Auto) 1.5 (1.1-3.1) [place] # (Auto) 0.4 L (1.1-3.1) Eos # (Auto) 0.1 (0.0-0.2) Baso # (Auto) 0.0 (0.0-0.1) Absolute Gran (auto) 4.8 (2.3-6.0) CMP 09/15/24 06:30 Sodium 141 Potassium 3.5 L Chloride 109.0 H Carbon Dioxide 27 BUN 24 H Creatinine 1.3 Glucose 95 Calcium 7.3 L Liver Function 09/15/24 Range/Units 06:30 Total Bilirubin 0.66 (0.0-1.0) mg/dL AST 16 (15-37) U/L ALT 21 L (30-65) U/L Alkaline Phosphatase 67 (50-136) U/L Albumin 2.0 L (3.4-5.0) g/dL Urine 09/13/24 10:26 Urine Color Yellow Urine Appearance Hazy Ur Specific [place] 1.030 Urine Protein 1+ Urine Glucose (UA) Normal Imaging Chest x-ray: Radiologist's impression: XR CHEST 1V Date of Service: 09/13/24 HISTORY: dyspneadyspnea; COMPARISON: January 13, 2023 FINDINGS: The trachea is midline. The cardiac silhouette is borderline or mildly enlarged. The lungs are clear without focal infiltrate or effusion. The bony thorax is unremarkable. IMPRESSION: No acute cardiopulmonary disease. Lower Extremity MRI: Radiologist's impression: MR LOWER LEG LT WO/W CON Date of Service: 09/14/24 HISTORY: Osteomyelitis; GFR: 39 9 ML [facility] COMPARISON: CT dated 08/13 24 TECHNIQUE: Multi planar series were obtained without and with IV contrast. FINDINGS: MUSCLES, TENDONS, AND SOFT TISSUES: No evidence of fluid collection. No abnormal signal or enhancement suspicious for myositis or osteomyelitis. Moderate subcutaneous edema. Diffuse muscle atrophy. BONE/JOINTS: Moderate metallic artifact surrounding the knee and ankle from knee prosthesis and distal fibula fixation hardware. No focal abnormal marrow signal or enhancement identified. No evidence of cortical destruction or marrow replacing process. IMPRESSION: Technically difficult study due to metallic artifact from knee prosthesis and distal fibula fixation hardware. No evidence of osteomyelitis. Diffuse subcutaneous edema without evidence of fluid collection. Progress Note: A&P Assessment and Plan (1) Fluid overload: Qualifiers: Hypervolemia type: other Qualified Code(s): E87.79 - Other fluid overload (2) UTI (urinary tract infection): Qualifiers: Hematuria presence: with hematuria Urinary tract infection type: site unspecified Qualified Code(s): N39.0 - Urinary tract infection, site not specified; R31.9 - Hematuria, unspecified (3) Cellulitis of left lower extremity: (4) Right BKA infection: (5) ARF (acute respiratory failure): Qualifiers: Respiratory failure complication: unspecified whether with hypoxia or hypercapnia Qualified Code(s): J96.00 - Acute respiratory failure, unspecified whether with hypoxia or hypercapnia (6) Atrial fibrillation with RVR: (7) Morbid obesity: (8) Sinus tachycardia: Assessment and Plan: resolved (9) GERD with esophagitis: Qualifiers: Esophagitis bleeding: without hemorrhage Qualified Code(s): K21.00 - Gastro-esophageal reflux disease with esophagitis, without bleeding (10) Hypertension: Onset Date: Unknown Assessment and Plan: stable Qualifiers: Hypertension type: primary hypertension Qualified Code(s): I10 - Essential (primary) hypertension (11) 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: (12) Anxiety: (13) Confusion: Assessment and Plan: resolved (14) Physical debility: Plan 0.9% NS at 83 ml per hour stop secondary to fluid overload lasix 20 mg IV x 1 daily weights registered nurse cardiac telemetry continuous pulse oximetry Albumin 100 mls @ 60 mls/hr IV Q2H neuro checks every 4 hours and prn clean left leg and elevate and compression wrap as tolerated BNPeptie, CBC, CMP, MAG, PHOS in the am ECHO in the am Patient to go to [facility] for use of whirlpool tub for proper bath/cleaning Emilia Boot applied to Bilateral lower extremities MRI right lower extremity AU consult as patient sees Dr White in [place] and he performed her BKA of the right leg agreed with current plan and want a CTA of gerardo lower extremity Vancomycin pharmacy to dose started 09/14/2024 Pantoprazole Sodium 40 mg IVP DAILY Meropenem 1 gm in Sodium Chloride 50mls @ 100 mls/hr IV Q8H stopped 09/14/2024 Clindamycin Phosphate/Dextrose 300 mg in 50 mls @ 50 mls/hr IV Q6H Stopped 09/14/2024 Gabapentin 100 mg PO TID Diltiazem Hcl 180 mg PO DAILY Escitalopram Oxalate 20 mg PO DAILY Fluconazole 200 mg in 100 mls @ 100 mls/hr IV Q24H Nystatin 1 gm TOPICAL Q12H Magnesium Hydroxide 30 ml PO DAILY PRN Bisacodyl 10 mg [place] DAILY PRN Ketorolac Tromethamine 15 mg IVP Q6H PRN Ondansetron Hcl 4 mg INJ Q6H PRN Promethazine Hcl 25 mg in Sodium Chloride 51 mls @ 200 mls/hr IV Q8H PRN Acetaminophen 1,000 mg in 100 mls @ 400 mls/hr IV Q6H PRN Fall Risk Details Song Fall Scale Risk Level: High Fall Risk Current Medications: Current Medications Bisacodyl (Bisacodyl 10 Mg Supp.Rect) 10 mg [place] DAILY PRN PRN Reason: Constipation Diltiazem HCl (Diltiazem Hcl 180 Mg Cap.Er.Deg) 180 mg PO DAILY [facility] Last Admin: 09/15/24 08:31 Dose: 180 mg Escitalopram Oxalate (Escitalopram Oxalate 10 Mg Tablet) 20 mg PO DAILY [facility] Last Admin: 09/15/24 08:31 Dose: 20 mg Gabapentin (Gabapentin 100 Mg Capsule) 100 mg PO TID [facility] Last Admin: 09/15/24 08:31 Dose: 100 mg Acetaminophen (Acetaminophen 1000 Mg/100 Ml) 1,000 mg in 100 mls @ 400 mls/hr IV Q6H PRN PRN Reason: MILD PAIN SCALE 1-4 Last Admin: 09/14/24 20:26 Dose: 400 mls/hr Fluconazole (Fluconazole-Nacl 200 Mg/100 Ml) 200 mg in 100 mls @ 100 mls/hr IV Q24H [facility] Last Admin: 09/14/24 12:03 Dose: 100 mls/hr Vancomycin/PEG/[place]/Lysine/Water (Vancomycin/Water 1.25 Gm) 1.25 gm in 250 mls @ 175 mls/hr IV Q24H [facility] Last Infusion: 09/14/24 14:36 Dose: Infused Meropenem 1 gm/ Sodium (Chloride) 50 mls @ 100 mls/hr IV Q8H [facility] Last Infusion: 09/15/24 03:41 Dose: Infused Albumin Human (Albumin Human 25%) 100 mls @ 60 mls/hr IV Q2H [facility] Stop: 09/15/24 12:39 Last Admin: 09/15/24 09:35 Dose: 60 mls/hr Ketorolac Tromethamine (Ketorolac 30 Mg/Ml Inj Vial) 15 mg IVP Q6H PRN PRN Reason: Moderate Pain SCALE 5-7 Stop: 09/18/24 13:59 Last Admin: 09/15/24 08:31 Dose: 15 mg Magnesium Hydroxide (Magnesium, Aluminum Hydroxide 30 Ml Oral.Susp) 30 ml PO DAILY PRN PRN Reason: Heartburn Methadone HCl (Methadone Hcl 10 Mg Tablet) 10 mg PO Q12H PRN PRN Reason: Severe Pain SCALE 8-10 Nystatin (Nystatin 15 Gm Powder) 1 gm TOPICAL Q12H [facility] Last Admin: 09/15/24 00:40 Dose: 1 gm Ondansetron HCl (Ondansetron Hcl/Pf 4 Mg/2 Ml Vial) 4 mg INJ Q6H PRN PRN Reason: Nausea And Vomiting Pantoprazole Sodium (Pantoprazole Sodium 40 Mg Vial) 40 mg IVP DAILY [facility] Last Admin: 09/15/24 08:31 Dose: 40 mg Time Spent With Patient Time: Total time spent is greater than 50% in coordination of care (as documented) at patient's floor/unit and/or counseling patient:
[2024-09-15] MEDS: METHADONE HCL 10 MG TABLET PO PRN (12:23)
[2024-09-15] MEDS: FUROSEMIDE 20 MG/2 ML VIAL IV SCH (14:19)
[2024-09-15 14:47] LABS: Potassium 4.4 mmol/L (3.6-5.2)
[2024-09-15] MEDS: IPRATROPIUM/ALBUTEROL SULFATE 3 ML AMPUL.NEB INH SCH (15:35)
[2024-09-16 06:44] LABS: Basophils%(Percent) Auto 0.1 (0.1-0.85)
[2024-09-16 07:22] LABS: Granulocytes#(Absolute)- Auto 6.2 (2.3-6.0); Hematocrit 25.4 % (35.9-46.7); Mean Corpuscular Volume 87.8 fl (81.0-93.7); Monocytes #(Absolute)- Auto 0.3 (1.1-3.1); Monocytes %(Percent)- Auto 3.9 % (3.6-9.8); Platelet Count 124 K/uL (152-353)
[2024-09-16 08:16] LABS: Potassium 4.5 mmol/L (3.6-5.2)
[2024-09-16] MEDS: APIXABAN 2.5 MG TABLET PO SCH (09:40)
[2024-09-16] MEDS: CIPROFLOXACIN HCL 500 MG TABLET PO SCH (14:29)
--- NOTE | 2024-09-16 15:30 | Progress Note ---
Progress Note: Subjective Subjective Interval history: Hospital day 4 Patient had an uneventful night. She is requesting "Methadone", stating she is use to taking that 4 times a day. MRI reflects infection is not in bones so no osteomyelitis Patient continues to wear unaboots removed today for CTA and pictures of the wound remain afebrile and more alert and talking more coherently at this time. still agreeing to rehab once she is approved. patient not received it since 12/2023 and she states she has a history of atrial fib and she is unable to say whys she has not been taking it since December. Exam 2 Exam: Patient in supine position with STATISTICIAN APPLIED at bedside changing brief. Constitutional: abnormal general appearance (chronically ill) and (frail appearing), no apparent distress, abnormal body habitus (obese), limitations noted (physical limitations) (Right leg BKA) and alert Vital Signs - 24 hr 09/15/24 15:36 09/15/24 16:00 09/15/24 17:42 Temperature 98.2 F Pulse Rate [Left F emoral] 79 Respiratory Rate 19 Blood Pressure 137/53 Blood Pressure [Le ft Arm] 137/53 Pulse Oximetry 97 91 L Oxygen Delivery Me thod Nasal Cannula Oxygen Flow Rate 2 Fraction of Inspir ed Oxygen 09/15/24 20:00 09/15/24 20:26 09/15/24 20:26 Temperature 99.2 F Pulse Rate [Left F emoral] 91 H Respiratory Rate 21 Blood Pressure Blood Pressure [Le ft Arm] 139/60 Pulse Oximetry 95 93 L 93 L Oxygen Delivery Me thod Nasal Cannula Room Air Oxygen Flow Rate 2 Fraction of Inspir ed Oxygen 28 09/15/24 23:38 09/16/24 00:42 09/16/24 03:35 Temperature 98.5 F 97.4 F L Pulse Rate [Left F emoral] 89 88 Respiratory Rate 19 18 Blood Pressure Blood Pressure [Le ft Arm] 136/65 145/97 Pulse Oximetry 96 97 96 Oxygen Delivery Me thod Nasal Cannula Nasal Cannula Oxygen Flow Rate Fraction of Inspir ed Oxygen 09/16/24 07:35 09/16/24 08:00 09/16/24 11:21 Temperature 98.4 F Pulse Rate [Left F emoral] 74 Respiratory Rate 19 Blood Pressure Blood Pressure [Le ft Arm] 135/61 Pulse Oximetry 85 L 97 94 L Oxygen Delivery Me thod Nasal Cannula Oxygen Flow Rate 2 Fraction of Inspir ed Oxygen 09/16/24 12:00 Temperature 99.1 F Pulse Rate [Left F emoral] 85 Respiratory Rate 19 Blood Pressure Blood Pressure [Le ft Arm] 145/48 Pulse Oximetry 91 L Oxygen Delivery Me thod Nasal Cannula Oxygen Flow Rate 2 Fraction of Inspir ed Oxygen HENMT: normocephalic, head/scalp atraumatic, hearing grossly normal bilaterally, external ears normal, EACs normal, nasal mucous membranes normal, external nose normal, oral mucous membranes normal, oropharynx normal, dentition normal and gingiva normal Eyes: PERRL, EOMs intact bilaterally, conjunctivae normal, no scleral icterus, no papilledema, normal visual bowman by confrontation, alignment normal, periorbital findings normal and no nystagmus Neck/C-Spine: visual inspection normal, trachea midline, cervical spine nontender, cervical full ROM noted and supple Lymph: no lymphadenopathy noted and no lymphedema noted Chest: inspection of chest normal and palpation of chest normal Respiratory: breath sounds equal bilaterally, abnormal respiratory effort (labored), clear to auscultation bilaterally, no wheezes, no rales, no retractions and no use of accessory muscles Cardiovascular: normal heart rate noted, rhythm abnormal (irregular), no gallop, no rub, no murmur, no JVD, no clicks, peripheral pulses 2+ throughout and no additional abnormal heart sounds Gastrointestinal: abdomen normal to inspection, abdomen soft to palpation, nontender to percussion, nondistended, normoactive bowel sounds, no hepatosplenomegaly, no masses, no pulsatile mass, no ascites and no hernia Genitourinary: no CVA tenderness, bladder normal to palpation and external appearance normal Back/Pelvis: spine normal to inspection, no thoracic spine tenderness, no lumbar spine tenderness, thoracic spine ROM normal, lumbar spine ROM normal, no paraspinal muscle tenderness noted and straight leg raise negative bilaterally Extremities: abnormal to inspection, abnormal to palpation, tenderness noted, full ROM, no joint enlargement and no deformity Edema improved. Neurology: home and family living professor II-XII intact, no movement abnormality noted, no focal motor deficit noted, no sensory deficits noted, deep tendon reflexes 2+ bilaterally, gait abnormality noted (unable to access), speech normal, coordination normal, no pronator drift noted, no fasciculations noted and GCS normal Psychiatry: Mental Status Exam documented within this Exam's Psych section mental status grossly normal, oriented x3, thought process normal, cooperative, affect normal, psychomotor activity normal and memory normal more jovial today than even yesterday which was an improvement over the previous days Feel stressed/tense/nervous/anxious/difficulty sleeping: rather much L rehana stressors: other Life stressor details: current health and need for rehab Skin: skin color abnormal (Left lower leg) Reports (erythema), no rash, no lesions, ecchymosis noted, wound(s) noted (See pictures), no lacerations, skin turgor normal, no jaundice, no petechiae, no mottling, nails abnormality noted and no alopecia Patient has noted cellulitis of left lower leg and the stump of the right leg and the abdominal and groin folds are greatly improved and drying in and not near as angry looking today Image: RLE 09/14/24 LLE 09/14/24 no new pics today andie boot in place on 09/15/2024 new pics prior to the CTA on 09/16/2024 Progress Note: Objective Labs Labs: CBC 09/16/24 Range/Units 06:35 WBC 7.0 (4.3-9.3) K/uL RBC 2.9 L (4.00-5.50) M/uL Hgb 8.2 L (12.5-15.8) gm/dL Hct 25.4 L (35.9-46.7) % Plt Count 124 L (152-353) K/uL Gran % 88.0 H (47.8-71.3) % Lymph % (Auto) 8.0 L (20.0-43.0) % [place] % (Auto) 3.9 (3.6-9.8) % Eos % (Auto) 0.0 L (0.4-2.8) % Baso % (Auto) 0.1 (0.1-0.85) Lymph # (Auto) 0.6 L (1.1-3.1) [place] # (Auto) 0.3 L (1.1-3.1) Eos # (Auto) 0.0 (0.0-0.2) Baso # (Auto) 0.0 (0.0-0.1) Absolute Gran (auto) 6.2 H (2.3-6.0) CMP 09/16/24 06:35 Sodium 138 Potassium 4.5 Chloride 106.0 Carbon Dioxide 25 BUN 20 H Creatinine 1.1 Glucose 175 H Calcium 7.6 L Liver Function 09/16/24 Range/Units 06:35 Total Bilirubin 0.53 (0.0-1.0) mg/dL AST 26 (15-37) U/L ALT 34 (30-65) U/L Alkaline Phosphatase 154 H (50-136) U/L Albumin 2.6 L (3.4-5.0) g/dL Urine 09/13/24 10:26 Urine Color Yellow Urine Appearance Hazy Ur Specific [place] 1.030 Urine Protein 1+ Urine Glucose (UA) Normal ECG Attestation: I have reviewed the pertinent ECG results. Prior ECG tracings: available for review Progress Note: A&P Assessment and Plan (1) Atrial fibrillation with RVR: (2) Fluid overload: Qualifiers: Hypervolemia type: other Qualified Code(s): E87.79 - Other fluid overload (3) UTI (urinary tract infection): Qualifiers: Urinary tract infection type: site unspecified Hematuria presence: with hematuria Qualified Code(s): N39.0 - Urinary tract infection, site not specified; R31.9 - Hematuria, unspecified (4) Cellulitis of left lower extremity: (5) Right BKA infection: (6) ARF (acute respiratory failure): Qualifiers: Respiratory failure complication: unspecified whether with hypoxia or hypercapnia Qualified Code(s): J96.00 - Acute respiratory failure, unspecified whether with hypoxia or hypercapnia (7) Morbid obesity: (8) Sinus tachycardia: Assessment and Plan: resolved (9) GERD with esophagitis: Qualifiers: Esophagitis bleeding: without hemorrhage Qualified Code(s): K21.00 - Gastro-esophageal reflux disease with esophagitis, without bleeding (10) Hypertension: Onset Date: Unknown Assessment and Plan: stable Qualifiers: Hypertension type: primary hypertension Qualified Code(s): I10 - Essential (primary) hypertension (11) 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: (12) Anxiety: (13) Confusion: Assessment and Plan: resolved (14) Physical debility: Plan 0.9% NS at 83 ml per hour stop secondary to fluid overload lasix 20 mg IV x 1 only oral lasix today daily weights cardiac care nurse continuous pulse oximetry Albumin 100 mls @ 60 mls/hr IV Q2H neuro checks every 4 hours and prn clean left leg and elevate and compression wrap as tolerated BNPeptie, CBC, CMP, MAG, PHOS in the am ECHO shows severe pulmonary hypertension with pressures in the high 70's to 80's Patient to go to [place] for use of whirlpool tub for proper bath/cleaning Andie Boot applied to Bilateral lower extremities MRI 09/14/2024 right lower extremity no osteomyelitis CTA with run off on 09/16/2024 still pending AU consult as patient sees Dr White in [place] and he performed her BKA of the right leg agreed with current plan and want a CTA of gerardo lower extremity Vancomycin pharmacy to dose started 09/14/2024 Pantoprazole Sodium 40 mg IVP DAILY Meropenem 1 gm in Sodium Chloride 50mls @ 100 mls/hr IV Q8H stopped 09/14/2024 Clindamycin Phosphate/Dextrose 300 mg in 50 mls @ 50 mls/hr IV Q6H Stopped 09/14/2024 Gabapentin 100 mg PO TID Diltiazem Hcl 180 mg PO DAILY Escitalopram Oxalate 20 mg PO DAILY Fluconazole 200 mg in 100 mls @ 100 mls/hr IV Q24H Nystatin 1 gm TOPICAL Q12H Eliquis 5 mg po bid started today and patient not received it since 12/2023 and she states she has a history of atrial fib and she is unable to say whys she has not been taking it since December. Magnesium Hydroxide 30 ml PO DAILY PRN Bisacodyl 10 mg ME DAILY PRN Ketorolac Tromethamine 15 mg IVP Q6H PRN Ondansetron Hcl 4 mg INJ Q6H PRN Promethazine Hcl 25 mg in Sodium Chloride 51 mls @ 200 mls/hr IV Q8H PRN Acetaminophen 1,000 mg in 100 mls @ 400 mls/hr IV Q6H PRN Fall Risk Details Song Fall Scale Risk Level: Moderate Fall Risk Current Medications: Current Medications Albuterol Sulfate (Ipratropium/Albuterol Sulfate 3 Ml Ampul.Neb) 3 ml INH RQ4 [place] Last Admin: 09/16/24 11:20 Dose: 3 ml Apixaban (Apixaban 2.5 Mg Tablet) 5 mg PO BID [facility] Last Admin: 09/16/24 09:40 Dose: 5 mg Bisacodyl (Bisacodyl 10 Mg Supp.Rect) 10 mg ME DAILY PRN PRN Reason: Constipation Ciprofloxacin (Ciprofloxacin Hcl 500 Mg Tablet) 500 mg PO Q12H [facility] Last Admin: 09/16/24 14:29 Dose: 500 mg Diltiazem HCl (Diltiazem Hcl 180 Mg Cap.Er.Deg) 180 mg PO DAILY [facility] Last Admin: 09/16/24 09:39 Dose: 180 mg Escitalopram Oxalate (Escitalopram Oxalate 10 Mg Tablet) 20 mg PO DAILY [facility] Last Admin: 09/16/24 09:39 Dose: 20 mg Gabapentin (Gabapentin 100 Mg Capsule) 100 mg PO TID [facility] Last Admin: 09/16/24 09:39 Dose: 100 mg Acetaminophen (Acetaminophen 1000 Mg/100 Ml) 1,000 mg in 100 mls @ 400 mls/hr IV Q6H PRN PRN Reason: MILD PAIN SCALE 1-4 Last Admin: 09/14/24 20:26 Dose: 400 mls/hr Fluconazole (Fluconazole-Nacl 200 Mg/100 Ml) 200 mg in 100 mls @ 100 mls/hr IV Q24H [facility] Last Admin: 09/16/24 12:54 Dose: 100 mls/hr Ketorolac Tromethamine (Ketorolac 30 Mg/Ml Inj Vial) 15 mg IVP Q6H PRN PRN Reason: Moderate Pain SCALE 5-7 Stop: 09/18/24 13:59 Last Admin: 09/15/24 08:31 Dose: 15 mg Magnesium Hydroxide (Magnesium, Aluminum Hydroxide 30 Ml Oral.Susp) 30 ml PO DAILY PRN PRN Reason: Heartburn Methadone HCl (Methadone Hcl 10 Mg Tablet) 10 mg PO Q12H PRN PRN Reason: Severe Pain SCALE 8-10 Last Admin: 09/16/24 06:30 Dose: 10 mg Nystatin (Nystatin 15 Gm Powder) 1 gm TOPICAL Q12H [facility] Last Admin: 09/16/24 12:53 Dose: 1 gm Ondansetron HCl (Ondansetron Hcl/Pf 4 Mg/2 Ml Vial) 4 mg INJ Q6H PRN PRN Reason: Nausea And Vomiting Pantoprazole Sodium (Pantoprazole Sodium 40 Mg Vial) 40 mg IVP DAILY [facility] Last Admin: 09/16/24 09:39 Dose: 40 mg Time Spent With Patient Time: Total time spent is greater than 50% in coordination of care (as documented) at patient's floor/unit and/or counseling patient:
[2024-09-16] MEDS: FUROSEMIDE 20 MG/2 ML VIAL IV ONE (17:17)
[2024-09-17 07:24] LABS: Potassium 4.6 mmol/L (3.6-5.2)
[2024-09-17 07:25] LABS: Basophils%(Percent) Auto 0.2 (0.1-0.85); Eosinophils%(Percent) Auto 0.3 % (0.4-2.8); Granulocytes#(Absolute)- Auto 6.5 (2.3-6.0); Hematocrit 25.1 % (35.9-46.7); Mean Corpuscular Volume 86.8 fl (81.0-93.7); Monocytes #(Absolute)- Auto 0.5 (1.1-3.1); Monocytes %(Percent)- Auto 6.6 % (3.6-9.8); Platelet Count 160 K/uL (152-353); White Blood Count 8.2 K/uL (4.3-9.3)
--- NOTE | 2024-09-17 12:03 | Progress Note ---
Progress Note: Subjective Subjective Interval history: Hospital day 5 Patient had an uneventful night. Patient continues to improve. Unaboots to be reapplied this a.m. Methadone restarted yesterday BID, increase today to TID. Patient still wants to go to a exterminator helper care facility once she is ready for discharge. Case management is working on finding placement. appears to with drawing this am as she did not get any of her methadone since PRN. trouble forming thoughts Exam 2 Exam: Patient resting in beard's position upon entering room for exam. Fine trimmers noted. Constitutional: abnormal general appearance (disheveled), (chronically ill) and (frail appearing), no apparent distress, abnormal body habitus (obese), limitations noted (physical limitations) (Right leg BKA) and alert Vital Signs - 24 hr 09/16/24 12:00 09/16/24 15:30 09/16/24 16:00 Temperature 99.1 F 97.6 F Pulse Rate Pulse Rate [Left F emoral] 85 101 H Respiratory Rate 19 19 Blood Pressure Blood Pressure [Le ft Arm] 145/48 157/81 Pulse Oximetry 91 L 100 90 L Oxygen Delivery Me thod Nasal Cannula Nasal Cannula Oxygen Flow Rate 2 2 Fraction of Inspir ed Oxygen 09/16/24 19:30 09/16/24 19:34 09/16/24 20:01 Temperature 97.9 F Pulse Rate Pulse Rate [Left F emoral] 83 Respiratory Rate 19 Blood Pressure 144/65 Blood Pressure [Le ft Arm] 144/65 Pulse Oximetry 95 95 Oxygen Delivery Me thod Room Air Nasal Can nula Oxygen Flow Rate 2 Fraction of Inspir ed Oxygen 09/16/24 20:01 09/16/24 23:36 09/16/24 23:52 Temperature 98.1 F Pulse Rate Pulse Rate [Left F emoral] 98 H Respiratory Rate 18 Blood Pressure Blood Pressure [Le ft Arm] 157/76 Pulse Oximetry 95 96 Oxygen Delivery Me thod Nasal Cannula Room Air Nasal Can nula Oxygen Flow Rate 2 2 Fraction of Inspir ed Oxygen 28 09/17/24 03:52 09/17/24 04:00 09/17/24 07:28 Temperature 98.1 F Pulse Rate Pulse Rate [Left F emoral] 86 Respiratory Rate 18 Blood Pressure Blood Pressure [Le ft Arm] 137/83 Pulse Oximetry 97 97 95 Oxygen Delivery Me thod Room Air Nasal Can nula Oxygen Flow Rate 2 Fraction of Inspir ed Oxygen 09/17/24 08:00 09/17/24 09:04 09/17/24 11:07 Temperature 97.8 F Pulse Rate 88 Pulse Rate [Left F emoral] 88 Respiratory Rate 20 Blood Pressure 120/62 Blood Pressure [Le ft Arm] 120/62 Pulse Oximetry 96 98 Oxygen Delivery Me thod Nasal Cannula Oxygen Flow Rate 2 Fraction of Inspir ed Oxygen HENMT: normocephalic, head/scalp atraumatic, hearing grossly normal bilaterally, external ears normal, EACs normal, nasal mucous membranes normal, external nose normal, oral mucous membranes normal, oropharynx normal, dentition normal and gingiva normal mouth slight tremors Eyes: PERRL, EOMs intact bilaterally, conjunctivae normal, no scleral icterus, no papilledema, normal visual bowman by confrontation, alignment normal, periorbital findings normal and no nystagmus Neck/C-Spine: visual inspection normal, trachea midline, cervical spine nontender, cervical full ROM noted and supple Lymph: no lymphadenopathy noted and no lymphedema noted Chest: inspection of chest normal, palpation of chest normal, inspection of breast(s) abnormal (deferred) and palpation of breast(s) abnormal (deferred) Respiratory: breath sounds equal bilaterally, normal respiratory effort, clear to auscultation bilaterally, no wheezes, no rales, no retractions and no use of accessory muscles Cardiovascular: normal heart rate noted, rhythm abnormal (irregular), no gallop, no rub, no murmur, no JVD, no clicks, peripheral pulses 2+ throughout and no additional abnormal heart sounds Gastrointestinal: abdomen normal to inspection, abdomen soft to palpation, tender to palpation, nontender to percussion, nondistended, normoactive bowel sounds, no hepatosplenomegaly, no masses, no pulsatile mass, no ascites, no hernia and rectal exam abnormal (deferred) Genitourinary: no CVA tenderness, bladder normal to palpation, external appearance normal, vaginal abnormality noted (deferred) and cervical abnormality noted (deferred) Back/Pelvis: spine normal to inspection, no thoracic spine tenderness, no lumbar spine tenderness, thoracic spine ROM normal, lumbar spine ROM normal, no paraspinal muscle tenderness noted and straight leg raise negative bilaterally Extremities: abnormal to inspection, abnormal to palpation, tenderness noted, full ROM, no joint enlargement and no deformity Edema improved. Neurology: urgent care physician assistant II-XII intact, movement abnormality noted (slight tremors ), no focal motor deficit noted, sensory deficit noted, deep tendon reflexes 2+ bilaterally, gait abnormality noted (unable to access), speech normal, coordination normal, no pronator drift noted, no fasciculations noted and GCS normal Psychiatry: Mental Status Exam documented within this Exam's Psych section mental status grossly normal, oriented x3, thought process normal, cooperative, affect normal, psychomotor activity normal and memory abnormal (recall trouble) Skin: skin color abnormal (Left lower leg) Reports (erythema), no rash, no lesions, ecchymosis noted, wound(s) noted (See pictures), no lacerations, skin turgor normal, no jaundice, no petechiae, no mottling, nails abnormality noted and no alopecia Patient has noted cellulitis of left lower leg and the stump of the right leg and the abdominal and groin folds are greatly improved and drying in and not near as angry looking today Image: RLE 09/14/24 LLE 09/14/24 no new pics today emilia boot in place on 09/15/2024 new pics prior to the CTA on 09/16/2024 Progress Note: Objective Labs Labs: CBC 09/17/24 Range/Units 06:36 WBC 8.2 (4.3-9.3) K/uL RBC 2.9 L (4.00-5.50) M/uL Hgb 8.1 L (12.5-15.8) gm/dL Hct 25.1 L (35.9-46.7) % Plt Count 160 (152-353) K/uL Gran % 79.0 H (47.8-71.3) % Lymph % (Auto) 13.9 L (20.0-43.0) % [place] % (Auto) 6.6 (3.6-9.8) % Eos % (Auto) 0.3 L (0.4-2.8) % Baso % (Auto) 0.2 (0.1-0.85) Lymph # (Auto) 1.1 (1.1-3.1) [place] # (Auto) 0.5 L (1.1-3.1) Eos # (Auto) 0.0 (0.0-0.2) Baso # (Auto) 0.0 (0.0-0.1) Absolute Gran (auto) 6.5 H (2.3-6.0) CMP 09/17/24 06:36 Sodium 138 Potassium 4.6 Chloride 106.0 Carbon Dioxide 28 BUN 26 H Creatinine 1.6 H Glucose 107 Calcium 8.3 L Liver Function 09/17/24 Range/Units 06:36 Total Bilirubin 0.40 (0.0-1.0) mg/dL AST 33 (15-37) U/L ALT 44 (30-65) U/L Alkaline Phosphatase 152 H (50-136) U/L Albumin 2.6 L (3.4-5.0) g/dL Urine 09/13/24 10:26 Urine Color Yellow Urine Appearance Hazy Ur Specific [place] 1.030 Urine Protein 1+ Urine Glucose (UA) Normal Imaging Chest x-ray: Radiologist's impression: XR CHEST 1V Date of Service: 09/16/24 HISTORY: [email or web address]; COMPARISON: 09/13/2024 FINDINGS: The cardiomediastinal silhouette is stable. No acute airspace disease. No pneumothorax or effusion. No acute osseous abnormality. IMPRESSION: No acute cardiopulmonary disease. 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: (2) Atrial fibrillation with RVR: (3) Fluid overload: Qualifiers: Hypervolemia type: other Qualified Code(s): E87.79 - Other fluid overload (4) UTI (urinary tract infection): Qualifiers: Hematuria presence: with hematuria Urinary tract infection type: site unspecified Qualified Code(s): N39.0 - Urinary tract infection, site not specified; R31.9 - Hematuria, unspecified (5) Cellulitis of left lower extremity: (6) Right BKA infection: (7) ARF (acute respiratory failure): Qualifiers: Respiratory failure complication: unspecified whether with hypoxia or hypercapnia Qualified Code(s): J96.00 - Acute respiratory failure, unspecified whether with hypoxia or hypercapnia (8) Morbid obesity: (9) Sinus tachycardia: Assessment and Plan: resolved (10) GERD with esophagitis: Qualifiers: Esophagitis bleeding: without hemorrhage Qualified Code(s): K21.00 - Gastro-esophageal reflux disease with esophagitis, without bleeding (11) Hypertension: Onset Date: Unknown Assessment and Plan: stable Qualifiers: Hypertension type: primary hypertension Qualified Code(s): I10 - Essential (primary) hypertension (12) 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: (13) Anxiety: (14) Confusion: Assessment and Plan: resolved (15) Physical debility: Plan 0.9% NS at 83 ml per hour stop secondary to fluid overload lasix 20 mg IV x 1 only oral lasix today daily weights rn cardiac rehab continuous pulse oximetry Albumin 100 mls @ 60 mls/hr IV Q2H neuro checks every 4 hours and prn clean left leg and elevate and compression wrap as tolerated BNPeptie, CBC, CMP, MAG, PHOS in the am ECHO shows severe pulmonary hypertension with pressures in the high 70's to 80's Patient to go to [place] for use of [employer] tub for proper bath/cleaning Emilia Boot applied to Bilateral lower extremities MRI 09/14/2024 right lower extremity no osteomyelitis CTA with run off on 09/16/2024 still pending AU consult as patient sees Dr White in [place] and he performed her BKA of the right leg agreed with current plan and want a CTA of gerardo lower extremity Vancomycin pharmacy to dose started 09/14/2024 Pantoprazole Sodium 40 mg IVP DAILY Meropenem 1 gm in Sodium Chloride 50mls @ 100 mls/hr IV Q8H stopped 09/14/2024 Clindamycin Phosphate/Dextrose 300 mg in 50 mls @ 50 mls/hr IV Q6H Stopped 09/14/2024 Gabapentin 100 mg PO TID Diltiazem Hcl 180 mg PO DAILY Escitalopram Oxalate 20 mg PO DAILY Fluconazole 200 mg in 100 mls @ 100 mls/hr IV Q24H Nystatin 1 gm TOPICAL Q12H Eliquis 5 mg po bid started today and patient not received it since 12/2023 and she states she has a history of atrial fib and she is unable to say whys she has not been taking it since December. Magnesium Hydroxide 30 ml PO DAILY PRN Bisacodyl 10 mg OR DAILY PRN Ketorolac Tromethamine 15 mg IVP Q6H PRN Ondansetron Hcl 4 mg INJ Q6H PRN Promethazine Hcl 25 mg in Sodium Chloride 51 mls @ 200 mls/hr IV Q8H PRN Acetaminophen 1,000 mg in 100 mls @ 400 mls/hr IV Q6H PRN methadone po every 8 hours since prn doses not taken Fall Risk Details Song Fall Scale Risk Level: Moderate Fall Risk Current Medications: Current Medications Albuterol Sulfate (Ipratropium/Albuterol Sulfate 3 Ml Ampul.Neb) 3 ml INH RQ4 [facility] Last Admin: 09/17/24 11:07 Dose: 3 ml Apixaban (Apixaban 2.5 Mg Tablet) 5 mg PO BID [facility] Last Admin: 09/17/24 09:04 Dose: 5 mg Bisacodyl (Bisacodyl 10 Mg Supp.Rect) 10 mg OR DAILY PRN PRN Reason: Constipation Ciprofloxacin (Ciprofloxacin Hcl 500 Mg Tablet) 500 mg PO Q12H [facility] Last Admin: 09/17/24 02:00 Dose: 500 mg Diltiazem HCl (Diltiazem Hcl 180 Mg Cap.Er.Deg) 180 mg PO DAILY [facility] Last Admin: 09/17/24 09:04 Dose: 180 mg Escitalopram Oxalate (Escitalopram Oxalate 10 Mg Tablet) 20 mg PO DAILY [facility] Last Admin: 09/17/24 09:04 Dose: 20 mg Gabapentin (Gabapentin 100 Mg Capsule) 100 mg PO TID [facility] Last Admin: 09/17/24 09:04 Dose: 100 mg Acetaminophen (Acetaminophen 1000 Mg/100 Ml) 1,000 mg in 100 mls @ 400 mls/hr IV Q6H PRN PRN Reason: MILD PAIN SCALE 1-4 Last Admin: 09/14/24 20:26 Dose: 400 mls/hr Fluconazole (Fluconazole-Nacl 200 Mg/100 Ml) 200 mg in 100 mls @ 100 mls/hr IV Q24H [facility] Last Admin: 09/16/24 12:54 Dose: 100 mls/hr Ketorolac Tromethamine (Ketorolac 30 Mg/Ml Inj Vial) 15 mg IVP Q6H PRN PRN Reason: Moderate Pain SCALE 5-7 Stop: 09/18/24 13:59 Last Admin: 09/15/24 08:31 Dose: 15 mg Magnesium Hydroxide (Magnesium, Aluminum Hydroxide 30 Ml Oral.Susp) 30 ml PO DAILY PRN PRN Reason: Heartburn Methadone HCl (Methadone Hcl 10 Mg Tablet) 10 mg PO Q8H [facility] Nystatin (Nystatin 15 Gm Powder) 1 gm TOPICAL Q12H [facility] Last Admin: 09/17/24 00:30 Dose: 1 gm Ondansetron HCl (Ondansetron Hcl/Pf 4 Mg/2 Ml Vial) 4 mg INJ Q6H PRN PRN Reason: Nausea And Vomiting Pantoprazole Sodium (Pantoprazole Sodium 40 Mg Vial) 40 mg IVP DAILY [place] Last Admin: 09/17/24 09:04 Dose: 40 mg Time Spent With Patient Time: Total time spent is greater than 50% in coordination of care (as documented) at patient's floor/unit and/or counseling patient:
[2024-09-17] MEDS: METHADONE HCL 10 MG TABLET PO SCH (14:15)
[2024-09-18 05:08] LABS: Basophils%(Percent) Auto 0.3 (0.1-0.85); Eosinophils#(Absolute)Auto 0.2 (0.0-0.2); Eosinophils%(Percent) Auto 1.9 % (0.4-2.8); Granulocytes % - Auto 71.5 % (47.8-71.3); Granulocytes#(Absolute)- Auto 5.9 (2.3-6.0); Hematocrit 26.9 % (35.9-46.7); Mean Corpuscular Volume 88.1 fl (81.0-93.7); Monocytes #(Absolute)- Auto 0.5 (1.1-3.1); Monocytes %(Percent)- Auto 6.1 % (3.6-9.8); Platelet Count 184 K/uL (152-353); White Blood Count 8.3 K/uL (4.3-9.3)
[2024-09-18 06:05] LABS: Potassium 4.5 mmol/L (3.6-5.2)
--- NOTE | 2024-09-18 08:58 | Progress Note ---
Progress Note: Subjective Subjective Interval history: Hospital day 6. Patient is sitting up in bed just finishing her breakfast. She is alert and oriented. Laughing and very talkative with staff. Patient had an uneventful night. Patient continues to improve. Unaboots to be reapplied this a.m. Patient planning to transition to a buttermaker helper care facility once she is ready for discharge. Case management working to find placement. Exam 2 Exam: Patient resting in beard's position upon entering room for exam. Fine trimmers noted. Constitutional: abnormal general appearance (disheveled), (chronically ill) and (frail appearing), no apparent distress, abnormal body habitus (obese), limitations noted (physical limitations) (Right leg BKA) and alert Vital Signs - 24 hr 09/17/24 09:04 09/17/24 11:07 09/17/24 12:00 Temperature 98.5 F Pulse Rate 88 Pulse Rate [Left F emoral] 90 Respiratory Rate 21 Blood Pressure 120/62 Blood Pressure [Le ft Arm] 122/69 Pulse Oximetry 98 95 Oxygen Delivery Me thod Nasal Cannula Oxygen Flow Rate 2 09/17/24 15:05 09/17/24 16:00 09/17/24 19:54 Temperature 98.2 F 99.3 F Pulse Rate Pulse Rate [Left F emoral] 70 99 H Respiratory Rate 21 19 Blood Pressure Blood Pressure [Le ft Arm] 116/56 136/77 Pulse Oximetry 98 94 L 95 Oxygen Delivery Me thod Nasal Cannula Nasal Cannula Oxygen Flow Rate 2 09/17/24 20:14 09/17/24 20:14 09/17/24 23:46 Temperature 98.8 F Pulse Rate Pulse Rate [Left F emoral] 103 H Respiratory Rate 20 Blood Pressure Blood Pressure [Le ft Arm] 160/88 Pulse Oximetry 94 L 94 L 93 L Oxygen Delivery Me thod Nasal Cannula Nasal Cannula Oxygen Flow Rate 2 09/18/24 03:36 09/18/24 07:13 09/18/24 07:59 Temperature 99.0 F 98.6 F Pulse Rate Pulse Rate [Left F emoral] 92 H 89 Respiratory Rate 18 20 Blood Pressure Blood Pressure [Le ft Arm] 152/84 158/86 Pulse Oximetry 94 L 95 90 L Oxygen Delivery Me thod Nasal Cannula Nasal Cannula Oxygen Flow Rate 2 09/18/24 08:33 Temperature Pulse Rate 89 Pulse Rate [Left F emoral] Respiratory Rate Blood Pressure 158/86 Blood Pressure [Le ft Arm] Pulse Oximetry Oxygen Delivery Me thod Oxygen Flow Rate HENMT: normocephalic, head/scalp atraumatic, hearing grossly normal bilaterally, external ears normal, EACs normal, nasal mucous membranes normal, external nose normal, oral mucous membranes normal, oropharynx normal, dentition normal and gingiva normal mouth slight tremors Eyes: PERRL, EOMs intact bilaterally, conjunctivae normal, no scleral icterus, no papilledema, normal visual bowman by confrontation, alignment normal, periorbital findings normal and no nystagmus Neck/C-Spine: visual inspection normal, trachea midline, cervical spine nontender, cervical full ROM noted and supple Lymph: no lymphadenopathy noted and no lymphedema noted Chest: inspection of chest normal and palpation of chest normal Respiratory: breath sounds equal bilaterally, normal respiratory effort, clear to auscultation bilaterally, no wheezes, no rales, no retractions and no use of accessory muscles Cardiovascular: normal heart rate noted, rhythm abnormal (irregular), no murmur and no JVD Gastrointestinal: abdomen normal to inspection, abdomen soft to palpation, nontender to palpation, nondistended and normoactive bowel sounds Patient has edema noted to the lower abdomen with excoriation of the skin Genitourinary: no CVA tenderness Back/Pelvis: spine normal to inspection, no thoracic spine tenderness, no lumbar spine tenderness, thoracic spine ROM normal, lumbar spine ROM normal and no paraspinal muscle tenderness noted Extremities: abnormal to inspection, abnormal to palpation, tenderness noted, full ROM and no joint enlargement Edema improved. Right BKA Neurology: inside sales trainer II-XII intact, movement abnormality noted (slight tremors ), no focal motor deficit noted, sensory deficit noted, deep tendon reflexes 2+ bilaterally, gait abnormality noted (unable to access), speech normal, coordination normal, no pronator drift noted and GCS normal Psychiatry: Mental Status Exam documented within this Exam's Psych section mental status grossly normal, oriented x3, thought process normal, cooperative, affect normal, psychomotor activity normal and memory abnormal (recall trouble) Skin: skin color abnormal (Left lower leg) Reports (erythema), no rash, no lesions, ecchymosis noted, wound(s) noted (See pictures), no lacerations, skin turgor normal, no jaundice, no petechiae, no mottling, nails abnormality noted and no alopecia Erythema of abdominal folds and groin-improving. Patient has noted cellulitis of left lower leg and the right stump Image: RLE 09/14/24 LLE 09/14/24 no new pics today andie boot in place on 09/15/2024 new pics prior to the CTA on 09/16/2024 Progress Note: Objective Labs Labs: CBC 09/18/24 Range/Units 05:00 WBC 8.3 (4.3-9.3) K/uL RBC 3.1 L (4.00-5.50) M/uL Hgb 8.6 L (12.5-15.8) gm/dL Hct 26.9 L (35.9-46.7) % Plt Count 184 (152-353) K/uL Gran % 71.5 H (47.8-71.3) % Lymph % (Auto) 20.2 (20.0-43.0) % Forest % (Auto) 6.1 (3.6-9.8) % Eos % (Auto) 1.9 (0.4-2.8) % Baso % (Auto) 0.3 (0.1-0.85) Lymph # (Auto) 1.7 (1.1-3.1) Forest # (Auto) 0.5 L (1.1-3.1) Eos # (Auto) 0.2 (0.0-0.2) Baso # (Auto) 0.0 (0.0-0.1) Absolute Gran (auto) 5.9 (2.3-6.0) CMP 09/18/24 05:00 Sodium 137 Potassium 4.5 Chloride 106.0 Carbon Dioxide 28 BUN 23 H Creatinine 1.0 Glucose 95 Calcium 8.3 L Liver Function 09/18/24 Range/Units 05:00 Total Bilirubin 0.45 (0.0-1.0) mg/dL AST 33 (15-37) U/L ALT 56 (30-65) U/L Alkaline Phosphatase 145 H (50-136) U/L Albumin 2.7 L (3.4-5.0) g/dL Urine 09/13/24 10:26 Urine Color Yellow Urine Appearance Hazy Ur Specific Soper 1.030 Urine Protein 1+ Urine Glucose (UA) Normal Pulse Oximetry SpO2 results: 95% on 2 L nasal cannula Attestation: I have reviewed the pertinent pulse oximetry results. Imaging Aorta with runoff CTA: Attestation: I have reviewed the pertinent imaging results. Radiologist's impression: EXAM: CT ANGIO ABD AORTA RUNOFF HISTORY: disease of lower extremity CTAdisease of lower extremity CTA; CV COMPARISON: 02/06/2023 TECHNIQUE: CT angiogram of the abdomen and pelvis obtained without and with IV contrast. 3D MIPS images obtained and reviewed. Dose reduction techniques including Automated Exposure Control (AEC) and adjustment of mA and kV were utilized. FINDINGS: Trace bilateral pleural effusions. Coronary calcifications. Small hiatal hernia. No acute osseous abnormality. Multilevel degenerative changes in the visualized spine. Right [id number]-vfi-[id number] amputation. Bilateral knee arthroplasty hardware with associated beam hardening artifact limiting evaluation of the surrounding structures. Surgical plate and screws overlying the distal left fibula. No evidence of abdominal aortic aneurysm or dissection. The celiac artery, SMA, bilateral renal arteries, and ZHENG are patent with multifocal atherosclerotic disease. The bilateral common, internal, and external iliac arteries are patent with multifocal atherosclerotic disease. The right common femoral, superficial femoral, and deep femoral arteries are patent with multifocal atherosclerotic disease. Visualized portions of the right popliteal artery are patent. The right posterior tibial artery is patent to the stump. The left common femoral, superficial femoral, and deep femoral arteries are patent with multifocal atherosclerotic disease. The visualized left popliteal artery is patent. Left anterior tibial, posterior tibial, and peroneal arteries appear patent to the left foot. The liver, gallbladder, spleen, pancreas, bilateral adrenal glands, and bilateral kidneys demonstrate no acute process. Similar, nonspecific cystic lesion in the spleen. No evidence of bowel obstruction. The appendix is not definitively visualized. No secondary signs of appendicitis. Diverticulosis without evidence of diverticulitis Gas in the bladder lumen which may be due to recent catheterization. Prior hysterectomy. No free air or fluid. Nonaneurysmal aorta. IMPRESSION: Patent three-vessel runoff to the left foot. Right lwxnt-noo-feua amputation with patency of the right posterior tibial artery to the stump. Trace bilateral pleural effusions. Diverticulosis without evidence of diverticulitis. 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 every 8 hours Continue escitalopram 10 mg p.o. daily Continue Xanax 0.5 mg p.o. twice daily as needed Monitor for any exacerbated mood changes neuro checks every 4 hours and prn (2) Atrial fibrillation with RVR: Assessment and Plan: Rate controlled ground layer Vital signs per protocol Continue home medications as directed continuous pulse oximetry Continue apixaban 5 mg p.o. twice daily Continue diltiazem IM ER 180 mg p.o. daily Labs-BNPeptide, CBC, CMP, MAG, PHOS in the am (3) Fluid overload: Assessment and Plan: ECHO shows severe pulmonary hypertension IV Hep-Lock Daily weight ground layer Vital signs per protocol continuous pulse oximetry Monitor intake and output Labs-BNPeptide, CBC, CMP, MAG, PHOS in the am Qualifiers: Hypervolemia type: other Qualified Code(s): E87.79 - Other fluid overload (4) UTI (urinary tract infection): Assessment and Plan: Urine culture positive for E. coli Patient receiving appropriate antibiotic therapy- Cipro 500 every 12 Blood cultures-No growth at day 5 Qualifiers: Hematuria presence: with hematuria Urinary tract infection type: site unspecified Qualified Code(s): N39.0 - Urinary tract infection, site not specified; R31.9 - Hematuria, unspecified (5) Cellulitis of left lower extremity: Assessment and Plan: AU consults MRI 09/14/2024 right lower extremity no osteomyelitis CTA with run off on 09/16/2024- IMPRESSION: - Patent three-vessel runoff to the left foot. Right nhsiz-yhg-dman amputation with patency of the right posterior tibial artery to the stump. - Trace bilateral pleural effusions. - Diverticulosis without evidence of diverticulitis. Wound Culture Final ML RESULTS DAY 1: TINY GROWTH: REINCUBATION REQUIRED (GRAM NEG RODS) DAY 2: MODERATE GROWTH GRAM NEGATIVE RODS ISOLATED ID & SENS TO FOLLOW Organism 1 Klebsiella oxytoca Organism 2 Serratia liquefaciens complex Continue with wound care as directed Continue with Unna boots bilateral lower extremity as directed Blood cultures-No growth at day 5 Cipro 500 P.o. every 12 Acetaminophen 1000 mg and 900 cc IV every 6 hours as needed for pain Gabapentin 100 mg p.o. 3 times daily Ketorolac 15 mg IVP every 6 hours as needed for pain Labs-BNPeptide, CBC, CMP, MAG, PHOS in the am (6) Right BKA infection: Assessment and Plan: AU consults MRI 09/14/2024 right lower extremity no osteomyelitis CTA with run off on 09/16/2024- IMPRESSION: - Patent three-vessel runoff to the left foot. Right [id number] amputation with patency of the right posterior tibial artery to the stump. - Trace bilateral pleural effusions. - Diverticulosis without evidence of diverticulitis. Blood culture negative growth at day 5 of Continue with Unna boots bilateral lower extremity as directed Cipro 500 P.o. every 12 Acetaminophen 1000 mg and 900 cc IV every 6 hours as needed for pain Gabapentin 100 mg p.o. 3 times daily Ketorolac 15 mg IVP every 6 hours as needed for pain Labs-BNPeptide, CBC, CMP, MAG, PHOS in the am (7) ARF (acute respiratory failure): Assessment and Plan: ECHO shows severe pulmonary hypertension IV Hep-Lock Daily weight ground layer Vital signs per protocol continuous pulse oximetry Monitor intake and output Labs-BNPeptide, CBC, CMP, MAG, PHOS in the am Qualifiers: Respiratory failure complication: unspecified whether with hypoxia or hypercapnia Qualified Code(s): J96.00 - Acute respiratory failure, unspecified whether with hypoxia or hypercapnia (8) Sinus tachycardia: Assessment and Plan: resolved (9) GERD with esophagitis: Assessment and Plan: Continue Protonix IVP daily Qualifiers: Esophagitis bleeding: without hemorrhage Qualified Code(s): K21.00 - Gastro-esophageal reflux disease with esophagitis, without bleeding (10) Hypertension: Onset Date: Unknown Assessment and Plan: stable ECHO shows severe pulmonary hypertension Continue vital signs per protocol ground layer Continue home medications as directed continuous pulse oximetry Continue apixaban 5 mg p.o. twice daily Continue diltiazem IM ER 180 mg p.o. 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 every 8 hours Continue escitalopram 10 mg p.o. daily Continue Xanax 0.5 mg p.o. twice daily as needed Monitor for any exacerbated mood changes Plan for long-term care placement neuro checks every 4 hours and prn (12) Anxiety: Assessment and Plan: Continue escitalopram 10 mg p.o. daily Continue Xanax 0.5 mg p.o. 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 Continue with Unna boots bilateral lower extremities Continue with a you consult as directed and as needed Continue with antibiotics as directed Plan for long-term care placement Medications continued: Gabapentin 100 mg PO TID Diltiazem Hcl 180 mg PO DAILY Escitalopram Oxalate 20 mg PO DAILY Fluconazole 200 mg in 100 mls @ 100 mls/hr IV Q24H Nystatin 1 gm TOPICAL Q12H Eliquis 5 mg po bid Magnesium Hydroxide 30 ml PO DAILY PRN Bisacodyl 10 mg SD DAILY PRN Ketorolac Tromethamine 15 mg IVP Q6H PRN Ondansetron Hcl 4 mg INJ Q6H PRN Promethazine Hcl 25 mg in Sodium Chloride 51 mls @ 200 mls/hr IV Q8H PRN Acetaminophen 1,000 mg in 100 mls @ 400 mls/hr IV Q6H PRN methadone po every 8 hours since prn doses not taken Fall Risk Details Song Fall Scale Risk Level: Moderate Fall Risk Current Medications: Current Medications Albuterol Sulfate (Ipratropium/Albuterol Sulfate 3 Ml Ampul.Neb) 3 ml INH RQ4 [facility] Last Admin: 09/18/24 07:13 Dose: 3 ml Apixaban (Apixaban 2.5 Mg Tablet) 5 mg PO BID [facility] Last Admin: 09/18/24 08:33 Dose: 5 mg Bisacodyl (Bisacodyl 10 Mg Supp.Rect) 10 mg SD DAILY PRN PRN Reason: Constipation Ciprofloxacin (Ciprofloxacin Hcl 500 Mg Tablet) 500 mg PO Q12H [facility] Last Admin: 09/18/24 02:36 Dose: 500 mg Diltiazem HCl (Diltiazem Hcl 180 Mg Cap.Er.Deg) 180 mg PO DAILY [facility] Last Admin: 09/18/24 08:33 Dose: 180 mg Escitalopram Oxalate (Escitalopram Oxalate 10 Mg Tablet) 20 mg PO DAILY [facility] Last Admin: 09/18/24 08:33 Dose: 20 mg Gabapentin (Gabapentin 100 Mg Capsule) 100 mg PO TID [facility] Last Admin: 09/18/24 08:33 Dose: 100 mg Acetaminophen (Acetaminophen 1000 Mg/100 Ml) 1,000 mg in 100 mls @ 400 mls/hr IV Q6H PRN PRN Reason: MILD PAIN SCALE 1-4 Last Admin: 09/14/24 20:26 Dose: 400 mls/hr Fluconazole (Fluconazole-Nacl 200 Mg/100 Ml) 200 mg in 100 mls @ 100 mls/hr IV Q24H [facility] Last Admin: 09/17/24 12:04 Dose: 100 mls/hr Ketorolac Tromethamine (Ketorolac 30 Mg/Ml Inj Vial) 15 mg IVP Q6H PRN PRN Reason: Moderate Pain SCALE 5-7 Stop: 09/18/24 13:59 Last Admin: 09/15/24 08:31 Dose: 15 mg Magnesium Hydroxide (Magnesium, Aluminum Hydroxide 30 Ml Oral.Susp) 30 ml PO DAILY PRN PRN Reason: Heartburn Methadone HCl (Methadone Hcl 10 Mg Tablet) 10 mg PO Q8H [facility] Last Admin: 09/18/24 05:28 Dose: 10 mg Nystatin (Nystatin 15 Gm Powder) 1 gm TOPICAL Q12H [facility] Last Admin: 09/17/24 23:58 Dose: 1 gm Ondansetron HCl (Ondansetron Hcl/Pf 4 Mg/2 Ml Vial) 4 mg INJ Q6H PRN PRN Reason: Nausea And Vomiting Pantoprazole Sodium (Pantoprazole Sodium 40 Mg Vial) 40 mg IVP DAILY [facility] Last Admin: 09/18/24 08:33 Dose: 40 mg Time Spent With Patient Time: Total time spent is greater than 50% in coordination of care (as documented) at patient's floor/unit and/or counseling patient: Time with patient: 25 - 35 minutes
[2024-09-18] MEDS: ALPRAZolam 0.5 MG TABLET PO PRN (13:02)
[2024-09-19 07:00] LABS: Eosinophils#(Absolute)Auto 0.1 (0.0-0.2); Monocytes #(Absolute)- Auto 0.4 (1.1-3.1); Platelet Count 195 K/uL (152-353); White Blood Count 8.4 K/uL (4.3-9.3)
[2024-09-19 07:02] LABS: Basophils%(Percent) Auto 0.2 (0.1-0.85); Eosinophils%(Percent) Auto 1.4 % (0.4-2.8); Granulocytes % - Auto 74.3 % (47.8-71.3); Granulocytes#(Absolute)- Auto 6.2 (2.3-6.0); Hematocrit 26.7 % (35.9-46.7); Mean Corpuscular Volume 87.8 fl (81.0-93.7); Monocytes %(Percent)- Auto 4.5 % (3.6-9.8)
[2024-09-19 07:17] LABS: Potassium 4.8 mmol/L (3.6-5.2)
--- NOTE | 2024-09-19 08:07 | Progress Note ---
Progress Note: Subjective Subjective Interval history: Hospital day 7. Patient is sitting up in bed just finishing her breakfast. She is alert and oriented. Laughing and very talkative with staff. Patient had an uneventful night. Reports a little anxiety this morning concerning the weather. Patient continues to improve. Dressings to LLE and stump of RLE dry and intact. There is noted improvement in the erythema. Patient planning to transition to a intermediate care facility once she is ready for discharge. Case management working to find placement. Exam 2 Exam: Patient resting in beard's position upon entering room for exam. Fine trimmers noted. Constitutional: abnormal general appearance (disheveled), (chronically ill) and (frail appearing), no apparent distress, abnormal body habitus (obese), limitations noted (physical limitations) (Right leg BKA) and alert Vital Signs - 24 hr 09/18/24 08:33 09/18/24 11:49 09/18/24 15:07 Temperature 98.9 F Pulse Rate 89 Pulse Rate [Left F emoral] 90 Respiratory Rate 19 Blood Pressure 158/86 Blood Pressure [Le ft Arm] 155/88 Pulse Oximetry 91 L 96 Oxygen Delivery Me thod Nasal Cannula Oxygen Flow Rate 2 Fraction of Inspir ed Oxygen 09/18/24 16:00 09/18/24 19:24 09/18/24 19:28 Temperature 99.8 F H 99.0 F Pulse Rate Pulse Rate [Left F emoral] 82 91 H 91 H Respiratory Rate 22 23 23 Blood Pressure Blood Pressure [Le ft Arm] 136/79 129/70 Pulse Oximetry 90 L 92 L Oxygen Delivery Me thod Nasal Cannula Nasal Cannula Oxygen Flow Rate 2 Fraction of Inspir ed Oxygen 09/18/24 19:30 09/18/24 23:49 09/18/24 23:56 Temperature 98.4 F Pulse Rate Pulse Rate [Left F emoral] 89 Respiratory Rate 22 Blood Pressure Blood Pressure [Le ft Arm] 161/72 Pulse Oximetry 95 93 L Oxygen Delivery Me thod Nasal Cannula Nasal Cannula Oxygen Flow Rate 2 Fraction of Inspir ed Oxygen 28 09/19/24 00:06 09/19/24 04:00 09/19/24 04:16 Temperature 99.7 F H Pulse Rate Pulse Rate [Left F emoral] 103 H Respiratory Rate 24 Blood Pressure Blood Pressure [Le ft Arm] 145/72 Pulse Oximetry 93 L 94 L 93 L Oxygen Delivery Me thod Nasal Cannula Oxygen Flow Rate Fraction of Inspir ed Oxygen 09/19/24 07:26 09/19/24 08:04 Temperature Pulse Rate 100 H Pulse Rate [Left F emoral] Respiratory Rate Blood Pressure Blood Pressure [Le ft Arm] Pulse Oximetry 99 Oxygen Delivery Me thod Oxygen Flow Rate Fraction of Inspir ed Oxygen HENMT: normocephalic, head/scalp atraumatic, hearing grossly normal bilaterally, external ears normal, EACs normal, nasal mucous membranes normal, external nose normal, oral mucous membranes normal, oropharynx normal, dentition normal and gingiva normal mouth slight tremors Eyes: PERRL, EOMs intact bilaterally, conjunctivae normal, no scleral icterus, no papilledema, normal visual bowman by confrontation, alignment normal, periorbital findings normal and no nystagmus Neck/C-Spine: visual inspection normal, trachea midline, cervical spine nontender, cervical full ROM noted and supple Lymph: no lymphadenopathy noted and no lymphedema noted Chest: inspection of chest normal, palpation of chest normal, inspection of breast(s) abnormal (deferred) and palpation of breast(s) abnormal (deferred) Respiratory: breath sounds equal bilaterally, normal respiratory effort, clear to auscultation bilaterally, no wheezes, no rales, no retractions and no use of accessory muscles Cardiovascular: normal heart rate noted, rhythm abnormal (irregular), no gallop, no rub, no murmur, no JVD, no clicks, peripheral pulses 2+ throughout and no additional abnormal heart sounds Gastrointestinal: abdomen normal to inspection, abdomen soft to palpation, nontender to palpation, nontender to percussion, nondistended, normoactive bowel sounds, no hepatosplenomegaly, no masses, no pulsatile mass, no ascites, no hernia and rectal exam abnormal (deferred) Patient has edema noted to the lower abdomen with excoriation of the skin Genitourinary: no CVA tenderness, bladder normal to palpation, external appearance normal, vaginal abnormality noted (deferred) and cervical abnormality noted (deferred) Back/Pelvis: spine normal to inspection, no thoracic spine tenderness, no lumbar spine tenderness, thoracic spine ROM normal, lumbar spine ROM normal, no paraspinal muscle tenderness noted and straight leg raise negative bilaterally Extremities: abnormal to inspection, abnormal to palpation, tenderness noted, full ROM, no joint enlargement and no deformity Edema improved. Right BKA Neurology: way inspector II-XII intact, movement abnormality noted (slight tremors ), no focal motor deficit noted, sensory deficit noted, deep tendon reflexes 2+ bilaterally, gait abnormality noted (unable to access), speech normal, coordination normal, no pronator drift noted, no fasciculations noted and GCS normal Psychiatry: Mental Status Exam documented within this Exam's Psych section mental status grossly normal, oriented x3, thought process normal, cooperative, affect normal, psychomotor activity normal and memory abnormal (recall trouble) more jovial today than even yesterday which was an improvement over the previous days Skin: skin color abnormal (Left lower leg) Reports (erythema), no rash, no lesions, ecchymosis noted, wound(s) noted (See pictures), no lacerations, skin turgor normal, no jaundice, no petechiae, no mottling, nails abnormality noted and no alopecia Erythema of abdominal folds and groin-improving. Patient has noted cellulitis of left lower leg and the right stump Image: RLE 09/14/24 LLE 09/14/24 no new pics today andie boot in place on 09/15/2024 new pics prior to the CTA on 09/16/2024 Progress Note: Objective Labs Labs: CBC 09/19/24 Range/Units 06:55 WBC 8.4 (4.3-9.3) K/uL RBC 3.0 L (4.00-5.50) M/uL Hgb 8.5 L (12.5-15.8) gm/dL Hct 26.7 L (35.9-46.7) % Plt Count 195 (152-353) K/uL Gran % 74.3 H (47.8-71.3) % Lymph % (Auto) 19.6 L (20.0-43.0) % Luce % (Auto) 4.5 (3.6-9.8) % Eos % (Auto) 1.4 (0.4-2.8) % Baso % (Auto) 0.2 (0.1-0.85) Lymph # (Auto) 1.6 (1.1-3.1) Luce # (Auto) 0.4 L (1.1-3.1) Eos # (Auto) 0.1 (0.0-0.2) Baso # (Auto) 0.0 (0.0-0.1) Absolute Gran (auto) 6.2 H (2.3-6.0) CMP 09/19/24 06:55 Sodium 139 Potassium 4.8 Chloride 105.0 Carbon Dioxide 30 BUN 18 Creatinine 0.9 Glucose 104 Calcium 8.1 L Liver Function 09/19/24 Range/Units 06:55 Total Bilirubin 0.56 (0.0-1.0) mg/dL AST 19 (15-37) U/L ALT 41 (30-65) U/L Alkaline Phosphatase 141 H (50-136) U/L Albumin 2.6 L (3.4-5.0) g/dL Urine 09/13/24 10:26 Urine Color Yellow Urine Appearance Hazy Ur Specific [place]ket 1.030 Urine Protein 1+ Urine Glucose (UA) Normal 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 every 8 hours Continue escitalopram 10 mg p.o. daily Continue Xanax 0.5 mg p.o. twice daily as needed Monitor for any exacerbated mood changes neuro checks every 4 hours and prn (2) Atrial fibrillation with RVR: Assessment and Plan: Rate controlled electronic device monitor Vital signs per protocol Continue home medications as directed continuous pulse oximetry Continue apixaban 5 mg p.o. twice daily Continue diltiazem IM ER 180 mg p.o. daily Labs-BNPeptide, CBC, CMP, MAG, PHOS in the am (3) Fluid overload: Assessment and Plan: ECHO shows severe pulmonary hypertension BNP improved now= 210 IV Hep-Lock Daily weight electronic device monitor Vital signs per protocol continuous pulse oximetry Monitor intake and output Labs-BNPeptide, CBC, CMP, MAG, PHOS in the am Repeat CXR Qualifiers: Hypervolemia type: other Qualified Code(s): E87.79 - Other fluid overload (4) UTI (urinary tract infection): Assessment and Plan: Urine culture positive for E. coli Patient receiving appropriate antibiotic therapy- Cipro 500 every 12hr Blood cultures-No growth at day 5- Final Qualifiers: Hematuria presence: with hematuria Urinary tract infection type: site unspecified Qualified Code(s): N39.0 - Urinary tract infection, site not specified; R31.9 - Hematuria, unspecified (5) Cellulitis of left lower extremity: Assessment and Plan: AU consults MRI 09/14/2024 right lower extremity no osteomyelitis CTA with run off on 09/16/2024- IMPRESSION: - Patent three-vessel runoff to the left foot. Right [id number] amputation with patency of the right posterior tibial artery to the stump. - Trace bilateral pleural effusions. - Diverticulosis without evidence of diverticulitis. Wound Culture Final ML RESULTS DAY 1: TINY GROWTH: REINCUBATION REQUIRED (GRAM NEG RODS) DAY 2: MODERATE GROWTH GRAM NEGATIVE RODS ISOLATED ID & SENS TO FOLLOW Organism 1 Klebsiella oxytoca Organism 2 Serratia liquefaciens complex Continue with wound care as directed Continue with Unna boots bilateral lower extremity as directed Blood cultures-No growth at day 5- Final Cipro 500 P.o. every 12 Acetaminophen 1000 mg and 900 cc IV every 6 hours as needed for pain Gabapentin 100 mg p.o. 3 times daily Ketorolac 15 mg IVP every 6 hours as needed for pain Labs-BNPeptide, CBC, CMP, MAG, PHOS in the am (6) Right BKA infection: Assessment and Plan: AU consults MRI 09/14/2024 right lower extremity no osteomyelitis CTA with run off on 09/16/2024- IMPRESSION: - Patent three-vessel runoff to the left foot. Right [id number] amputation with patency of the right posterior tibial artery to the stump. - Trace bilateral pleural effusions. - Diverticulosis without evidence of diverticulitis. Blood culture negative growth at day 5- Final Continue with Unna boots bilateral lower extremity as directed Cipro 500 P.o. every 12H Acetaminophen 1000 mg and 900 cc IV every 6 hours as needed for pain Gabapentin 100 mg p.o. 3 times daily Ketorolac 15 mg IVP every 6 hours as needed for pain Labs-BNPeptide, CBC, CMP, MAG, PHOS in the am (7) ARF (acute respiratory failure): Assessment and Plan: RESOLVED. Qualifiers: Respiratory failure complication: unspecified whether with hypoxia or hypercapnia Qualified Code(s): J96.00 - Acute respiratory failure, unspecified whether with hypoxia or hypercapnia (8) Sinus tachycardia: Assessment and Plan: resolved (9) GERD with esophagitis: Assessment and Plan: Continue Protonix IVP daily Qualifiers: Esophagitis bleeding: without hemorrhage Qualified Code(s): K21.00 - Gastro-esophageal reflux disease with esophagitis, without bleeding (10) Hypertension: Onset Date: Unknown Assessment and Plan: stable ECHO shows severe pulmonary hypertension Continue vital signs per protocol electronic device monitor Continue home medications as directed continuous pulse oximetry Continue apixaban 5 mg p.o. twice daily Continue diltiazem IM ER 180 mg p.o. 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 every 8 hours Continue escitalopram 10 mg p.o. daily Continue Xanax 0.5 mg p.o. twice daily as needed Monitor for any exacerbated mood changes Plan for long-term care placement neuro checks every 4 hours and prn (12) Anxiety: Assessment and Plan: Continue escitalopram 10 mg p.o. daily Continue Xanax 0.5 mg p.o. twice daily as needed Monitor for any exacerbated mood changes Plan for long-term care placement neuro checks every 4 hours and prn (13) Confusion: Assessment and Plan: resolved (14) Physical debility: Assessment and Plan: Monitor for any exacerbated mood changes Plan for long-term care placement Fall precautions PT/OT eval and treat Plan Continue with electrolyte replacement as per protocol- Continue laboratory monitor with continuous oxygen saturation monitor Continue with Unna boots bilateral lower extremities Continue with AU consult as directed and as needed Continue with antibiotics as directed Plan for long-term care placement Repeat CXR Medications continued: Gabapentin 100 mg PO TID Diltiazem Hcl 180 mg PO DAILY Escitalopram Oxalate 20 mg PO DAILY Fluconazole 200 mg in 100 mls @ 100 mls/hr IV Q24H Nystatin 1 gm TOPICAL Q12H Eliquis 5 mg po bid Cipro 500 P.o. every 12H Magnesium Hydroxide 30 ml PO DAILY PRN Bisacodyl 10 mg DE DAILY PRN Ketorolac Tromethamine 15 mg IVP Q6H PRN Ondansetron Hcl 4 mg INJ Q6H PRN Promethazine Hcl 25 mg in Sodium Chloride 51 mls @ 200 mls/hr IV Q8H PRN Acetaminophen 1,000 mg in 100 mls @ 400 mls/hr IV Q6H PRN methadone po every 8 hours since prn doses not taken Fall Risk Details Song Fall Scale Risk Level: Low Fall Risk Current Medications: Current Medications Albuterol Sulfate (Ipratropium/Albuterol Sulfate 3 Ml Ampul.Neb) 3 ml INH RQ4 [facility] Last Admin: 09/19/24 07:26 Dose: 3 ml Alprazolam (Alprazolam 0.5 Mg Tablet) 0.5 mg PO BID PRN PRN Reason: Anxiety Last Admin: 09/19/24 07:48 Dose: 0.5 mg Apixaban (Apixaban 2.5 Mg Tablet) 5 mg PO BID [facility] Last Admin: 09/19/24 08:04 Dose: 5 mg Bisacodyl (Bisacodyl 10 Mg Supp.Rect) 10 mg DE DAILY PRN PRN Reason: Constipation Ciprofloxacin (Ciprofloxacin Hcl 500 Mg Tablet) 500 mg PO Q12H [facility] Last Admin: 09/19/24 02:03 Dose: 500 mg Diltiazem HCl (Diltiazem Hcl 180 Mg Cap.Er.Deg) 180 mg PO DAILY [facility] Last Admin: 09/19/24 08:04 Dose: 180 mg Escitalopram Oxalate (Escitalopram Oxalate 10 Mg Tablet) 20 mg PO DAILY [facility] Last Admin: 09/19/24 08:04 Dose: 20 mg Gabapentin (Gabapentin 100 Mg Capsule) 100 mg PO TID [facility] Last Admin: 09/19/24 08:05 Dose: 100 mg Acetaminophen (Acetaminophen 1000 Mg/100 Ml) 1,000 mg in 100 mls @ 400 mls/hr IV Q6H PRN PRN Reason: MILD PAIN SCALE 1-4 Last Admin: 09/14/24 20:26 Dose: 400 mls/hr Fluconazole (Fluconazole-Nacl 200 Mg/100 Ml) 200 mg in 100 mls @ 100 mls/hr IV Q24H [facility] Last Admin: 09/18/24 12:17 Dose: 100 mls/hr Magnesium Hydroxide (Magnesium, Aluminum Hydroxide 30 Ml Oral.Susp) 30 ml PO DAILY PRN PRN Reason: Heartburn Methadone HCl (Methadone Hcl 10 Mg Tablet) 10 mg PO Q8H [facility] Last Admin: 09/19/24 05:01 Dose: 10 mg Nystatin (Nystatin 15 Gm Powder) 1 gm TOPICAL Q12H [facility] Last Admin: 09/18/24 23:23 Dose: 1 gm Ondansetron HCl (Ondansetron Hcl/Pf 4 Mg/2 Ml Vial) 4 mg INJ Q6H PRN PRN Reason: Nausea And Vomiting Pantoprazole Sodium (Pantoprazole Sodium 40 Mg Vial) 40 mg IVP DAILY [place] Last Admin: 09/19/24 08:04 Dose: 40 mg Time Spent With Patient Time: Total time spent is greater than 50% in coordination of care (as documented) at patient's floor/unit and/or counseling patient: Time with patient: 25 - 35 minutes
[2024-09-20 05:42] LABS: Basophils%(Percent) Auto 0.4 (0.1-0.85); Eosinophils#(Absolute)Auto 0.1 (0.0-0.2); Eosinophils%(Percent) Auto 1.6 % (0.4-2.8); Granulocytes % - Auto 76.4 % (47.8-71.3); Granulocytes#(Absolute)- Auto 6.2 (2.3-6.0); Hematocrit 26.1 % (35.9-46.7); Monocytes #(Absolute)- Auto 0.3 (1.1-3.1); Monocytes %(Percent)- Auto 4.1 % (3.6-9.8); Platelet Count 207 K/uL (152-353); White Blood Count 8.1 K/uL (4.3-9.3)
[2024-09-20 06:09] LABS: Potassium 4.2 mmol/L (3.6-5.2)
[2024-09-20] MEDS: NEOMYCIN/BACITRACIN/POLYMYXINB 1 EACH OINT.PACK TOPICAL SCH (12:35)
--- NOTE | 2024-09-20 14:40 | Progress Note ---
Progress Note: Subjective Subjective Interval history: Hospital day 8. Patient is sitting up in bed just finishing her breakfast. She is alert and oriented. Laughing and very talkative with staff. Patient had an uneventful night. Patient continues to improve. Dressings to LLE and stump of RLE dry and intact. There is noted improvement in the erythema. Patient planning to transition to a [facility] care facility once she is ready for discharge. Case management working to find placement. Exam 2 Exam: Patient in beard's position in positive disposition upon entering room for exam. Constitutional: abnormal general appearance (disheveled), (chronically ill) and (frail appearing), no apparent distress, abnormal body habitus (obese), limitations noted (physical limitations) (Right leg BKA) and alert Vital Signs - 24 hr 09/19/24 15:09 09/19/24 16:00 09/19/24 19:37 Temperature 98.8 F 98.6 F Pulse Rate [Left F emoral] 84 93 H Respiratory Rate 22 17 Blood Pressure [Le ft Arm] 139/52 141/60 Pulse Oximetry 97 92 L 94 L Oxygen Delivery Me thod Nasal Cannula Nasal Cannula Oxygen Flow Rate 3 09/19/24 21:05 09/19/24 21:10 09/19/24 23:49 Temperature 99.9 F H Pulse Rate [Left F emoral] 105 H Respiratory Rate 17 Blood Pressure [Le ft Arm] 139/66 Pulse Oximetry 93 L 93 L 92 L Oxygen Delivery Me thod Nasal Cannula Nasal Cannula Oxygen Flow Rate 2 09/20/24 03:52 09/20/24 07:46 09/20/24 12:00 Temperature 98.8 F 99.3 F 98.4 F Pulse Rate [Left F emoral] 103 H 105 H 105 H Respiratory Rate 18 19 19 Blood Pressure [Le ft Arm] 156/66 135/57 126/60 Pulse Oximetry 89 L 90 L 95 Oxygen Delivery Me thod Nasal Cannula Nasal Cannula Nasal Cannula Oxygen Flow Rate 2 2 09/20/24 12:39 Temperature Pulse Rate [Left F emoral] Respiratory Rate Blood Pressure [Le ft Arm] Pulse Oximetry 92 L Oxygen Delivery Me thod Oxygen Flow Rate HENMT: normocephalic, head/scalp atraumatic, hearing grossly normal bilaterally, external ears normal, EACs normal, nasal mucous membranes normal, external nose normal, oral mucous membranes normal, oropharynx normal, dentition normal and gingiva normal Eyes: PERRL, EOMs intact bilaterally, conjunctivae normal, no scleral icterus, no papilledema, normal visual bowman by confrontation, alignment normal, periorbital findings normal and no nystagmus Neck/C-Spine: visual inspection normal, trachea midline, cervical spine nontender, cervical full ROM noted and supple Lymph: no lymphadenopathy noted and no lymphedema noted Chest: inspection of chest normal and palpation of chest normal Respiratory: breath sounds equal bilaterally, normal respiratory effort, clear to auscultation bilaterally, no wheezes, no rales, no retractions and no use of accessory muscles Cardiovascular: heart rate abnormal (tachycardic), rhythm abnormal (irregular), no gallop, no rub, no murmur, no JVD, no clicks, peripheral pulses 2+ throughout and no additional abnormal heart sounds Gastrointestinal: abdomen normal to inspection, abdomen soft to palpation, nontender to palpation, nontender to percussion, nondistended, normoactive bowel sounds, no hepatosplenomegaly, no masses, no pulsatile mass, no ascites and no hernia Genitourinary: no CVA tenderness and bladder normal to palpation Back/Pelvis: spine normal to inspection, no thoracic spine tenderness, no lumbar spine tenderness, thoracic spine ROM normal, lumbar spine ROM normal, no paraspinal muscle tenderness noted and straight leg raise negative bilaterally Extremities: abnormal to inspection, abnormal to palpation, tenderness noted, full ROM, no joint enlargement and no deformity Edema improved. Right BKA Neurology: halftone operator II-XII intact, movement abnormality noted (slight tremors ), no focal motor deficit noted, sensory deficit noted, deep tendon reflexes 2+ bilaterally, gait abnormality noted (unable to access), speech normal, coordination normal, no pronator drift noted, no fasciculations noted and GCS normal Psychiatry: Mental Status Exam documented within this Exam's Psych section mental status grossly normal, oriented x3, thought process normal, cooperative, affect normal, psychomotor activity normal and memory abnormal (recall trouble) more jovial today Skin: skin color abnormal (Left lower leg) Reports (erythema), no rash, no lesions, ecchymosis noted, wound(s) noted (See pictures), no lacerations, skin turgor normal, no jaundice, no petechiae, no mottling, nails abnormality noted and no alopecia Patient has noted cellulitis of left lower leg and the right stump Image: RLE 09/14/24 LLE 09/14/24 no new pics today andie boot in place on 09/15/2024 new pics prior to the CTA on 09/16/2024 Progress Note: Objective Labs Labs: CBC 09/20/24 Range/Units 05:20 WBC 8.1 (4.3-9.3) K/uL RBC 3.0 L (4.00-5.50) M/uL Hgb 8.5 L (12.5-15.8) gm/dL Hct 26.1 L (35.9-46.7) % Plt Count 207 (152-353) K/uL Gran % 76.4 H (47.8-71.3) % Lymph % (Auto) 17.5 L (20.0-43.0) % [place] % (Auto) 4.1 (3.6-9.8) % Eos % (Auto) 1.6 (0.4-2.8) % Baso % (Auto) 0.4 (0.1-0.85) Lymph # (Auto) 1.4 (1.1-3.1) [place] # (Auto) 0.3 L (1.1-3.1) Eos # (Auto) 0.1 (0.0-0.2) Baso # (Auto) 0.0 (0.0-0.1) Absolute Gran (auto) 6.2 H (2.3-6.0) CMP 09/20/24 05:20 Sodium 136 Potassium 4.2 Chloride 104.0 Carbon Dioxide 28 BUN 16 Creatinine 0.8 Glucose 100 Calcium 8.2 L Liver Function 09/20/24 Range/Units 05:20 Total Bilirubin 0.73 (0.0-1.0) mg/dL AST 19 (15-37) U/L ALT 31 (30-65) U/L Alkaline Phosphatase 125 (50-136) U/L Albumin 2.3 L (3.4-5.0) g/dL Urine 09/13/24 10:26 Urine Color Yellow Urine Appearance Hazy Ur Specific [place] 1.030 Urine Protein 1+ Urine Glucose (UA) Normal Imaging Chest x-ray: Radiologist's impression: CHEST Date of Service: 09/19/24 HISTORY: CoughCough; COMPARISON: September 16, 2024. TECHNIQUE: Frontal view of the chest was submitted for interpretation. FINDINGS: The cardiomediastinal silhouette is within normal limits. Lungs show no focal consolidation, pneumothorax, or pleural fluid. IMPRESSION: No acute cardiopulmonary process. 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 every 8 hours Continue escitalopram 10 mg p.o. daily Continue Xanax 0.5 mg p.o. twice daily as needed Monitor for any exacerbated mood changes neuro checks every 4 hours and prn (2) Atrial fibrillation with RVR: Assessment and Plan: Rate controlled air sampling and monitoring Vital signs per protocol Continue home medications as directed continuous pulse oximetry Continue apixaban 5 mg p.o. twice daily Continue diltiazem IM ER 180 mg p.o. daily Labs-BNPeptide, CBC, CMP, MAG, PHOS in the am (3) Fluid overload: Assessment and Plan: ECHO shows severe pulmonary hypertension BNP improved now= 210 IV Hep-Lock Daily weight air sampling and monitoring Vital signs per protocol continuous pulse oximetry Monitor intake and output Labs-BNPeptide, CBC, CMP, MAG, PHOS in the am Repeat CXR Qualifiers: Hypervolemia type: other Qualified Code(s): E87.79 - Other fluid overload (4) UTI (urinary tract infection): Assessment and Plan: Urine culture positive for E. coli Patient receiving appropriate antibiotic therapy- Cipro 500 every 12hr Blood cultures-No growth at day 5- Final Qualifiers: Hematuria presence: with hematuria Urinary tract infection type: site unspecified Qualified Code(s): N39.0 - Urinary tract infection, site not specified; R31.9 - Hematuria, unspecified (5) Cellulitis of left lower extremity: Assessment and Plan: AU consults MRI 09/14/2024 right lower extremity no osteomyelitis CTA with run off on 09/16/2024- IMPRESSION: - Patent three-vessel runoff to the left foot. Right [id number] amputation with patency of the right posterior tibial artery to the stump. - Trace bilateral pleural effusions. - Diverticulosis without evidence of diverticulitis. Wound Culture Final ML RESULTS DAY 1: TINY GROWTH: REINCUBATION REQUIRED (GRAM NEG RODS) DAY 2: MODERATE GROWTH GRAM NEGATIVE RODS ISOLATED ID & SENS TO FOLLOW Organism 1 Klebsiella oxytoca Organism 2 Serratia liquefaciens complex Continue with wound care as directed Continue with Unna boots bilateral lower extremity as directed Blood cultures-No growth at day 5- Final Cipro 500 P.o. every 12 Acetaminophen 1000 mg and 900 cc IV every 6 hours as needed for pain Gabapentin 100 mg p.o. 3 times daily Ketorolac 15 mg IVP every 6 hours as needed for pain Labs-BNPeptide, CBC, CMP, MAG, PHOS in the am (6) Right BKA infection: Assessment and Plan: AU consults MRI 09/14/2024 right lower extremity no osteomyelitis CTA with run off on 09/16/2024- IMPRESSION: - Patent three-vessel runoff to the left foot. Right [id number] amputation with patency of the right posterior tibial artery to the stump. - Trace bilateral pleural effusions. - Diverticulosis without evidence of diverticulitis. Blood culture negative growth at day 5- Final Continue with Unna boots bilateral lower extremity as directed Cipro 500 P.o. every 12H Acetaminophen 1000 mg and 900 cc IV every 6 hours as needed for pain Gabapentin 100 mg p.o. 3 times daily Ketorolac 15 mg IVP every 6 hours as needed for pain Labs-BNPeptide, CBC, CMP, MAG, PHOS in the am (7) ARF (acute respiratory failure): Assessment and Plan: RESOLVED. Qualifiers: Respiratory failure complication: unspecified whether with hypoxia or hypercapnia Qualified Code(s): J96.00 - Acute respiratory failure, unspecified whether with hypoxia or hypercapnia (8) Sinus tachycardia: Assessment and Plan: resolved (9) GERD with esophagitis: Assessment and Plan: Continue Protonix IVP daily Qualifiers: Esophagitis bleeding: without hemorrhage Qualified Code(s): K21.00 - Gastro-esophageal reflux disease with esophagitis, without bleeding (10) Hypertension: Onset Date: Unknown Assessment and Plan: stable ECHO shows severe pulmonary hypertension Continue vital signs per protocol air sampling and monitoring Continue home medications as directed continuous pulse oximetry Continue apixaban 5 mg p.o. twice daily Continue diltiazem IM ER 180 mg p.o. 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 every 8 hours Continue escitalopram 10 mg p.o. daily Continue Xanax 0.5 mg p.o. twice daily as needed Monitor for any exacerbated mood changes Plan for long-term care placement neuro checks every 4 hours and prn (12) Anxiety: Assessment and Plan: Continue escitalopram 10 mg p.o. daily Continue Xanax 0.5 mg p.o. twice daily as needed Monitor for any exacerbated mood changes Plan for long-term care placement neuro checks every 4 hours and prn (13) Confusion: Assessment and Plan: resolved (14) Physical debility: Assessment and Plan: Monitor for any exacerbated mood changes Plan for long-term care placement Fall precautions PT/OT eval and treat Plan Continue with electrolyte replacement as per protocol- Continue monitoring tech with continuous oxygen saturation monitor Continue with AU consult as directed and as needed Continue with antibiotics as directed Plan for long-term care placement Repeat CXR Medications continued: Pantoprazole Sodium 40 mg IVP DAILY Gabapentin 100 mg PO TID Diltiazem Hcl 180 mg PO DAILY Escitalopram Oxalate 20 mg PO DAILY Albuterol Sulfate 3 ml INH RQ4 Apixaban 5 mg PO BID Cipro 500 PO Q12H Methadone Hcl 10 mg PO Q8H Neomycin/Polymyxin/Bacitracin (1) each TOPICAL DAILY Fluconazole 200 mg in 100 mls @ 100 mls/hr IV Q24H Nystatin 1 gm TOPICAL Q12H Magnesium Hydroxide 30 ml PO DAILY PRN Bisacodyl 10 mg MI DAILY PRN Ketorolac Tromethamine 15 mg IVP Q6H PRN Ondansetron Hcl 4 mg INJ Q6H PRN Promethazine Hcl 25 mg in Sodium Chloride 51 mls @ 200 mls/hr IV Q8H PRN Acetaminophen 1,000 mg in 100 mls @ 400 mls/hr IV Q6H PRN methadone po every 8 hours since prn doses not taken changed dressing today and looking much better and no edema noted Fall Risk Details Song Fall Scale Risk Level: Moderate Fall Risk Current Medications: Current Medications Albuterol Sulfate (Ipratropium/Albuterol Sulfate 3 Ml Ampul.Neb) 3 ml INH RQ4 [place] Last Admin: 09/20/24 12:39 Dose: 3 ml Alprazolam (Alprazolam 0.5 Mg Tablet) 0.5 mg PO BID PRN PRN Reason: Anxiety Last Admin: 09/19/24 07:48 Dose: 0.5 mg Apixaban (Apixaban 2.5 Mg Tablet) 5 mg PO BID [facility] Last Admin: 09/20/24 12:34 Dose: 5 mg Bisacodyl (Bisacodyl 10 Mg Supp.Rect) 10 mg MI DAILY PRN PRN Reason: Constipation Ciprofloxacin (Ciprofloxacin Hcl 500 Mg Tablet) 500 mg PO Q12H [facility] Last Admin: 09/20/24 02:49 Dose: Not Given Diltiazem HCl (Diltiazem Hcl 180 Mg Cap.Er.Deg) 180 mg PO DAILY [facility] Last Admin: 09/20/24 12:34 Dose: 180 mg Escitalopram Oxalate (Escitalopram Oxalate 10 Mg Tablet) 20 mg PO DAILY [facility] Last Admin: 09/20/24 12:34 Dose: 20 mg Gabapentin (Gabapentin 100 Mg Capsule) 100 mg PO TID [facility] Last Admin: 09/20/24 12:35 Dose: 100 mg Acetaminophen (Acetaminophen 1000 Mg/100 Ml) 1,000 mg in 100 mls @ 400 mls/hr IV Q6H PRN PRN Reason: MILD PAIN SCALE 1-4 Last Admin: 09/14/24 20:26 Dose: 400 mls/hr Fluconazole (Fluconazole-Nacl 200 Mg/100 Ml) 200 mg in 100 mls @ 100 mls/hr IV Q24H [facility] Last Admin: 09/20/24 12:35 Dose: 100 mls/hr Magnesium Hydroxide (Magnesium, Aluminum Hydroxide 30 Ml Oral.Susp) 30 ml PO DAILY PRN PRN Reason: Heartburn Methadone HCl (Methadone Hcl 10 Mg Tablet) 10 mg PO Q8H [facility] Last Admin: 09/20/24 06:01 Dose: 10 mg Neomycin/Polymyxin/Bacitracin (Neomycin/Bacitracin/Polymyxinb 1 Each Oint.Pack) 1 each TOPICAL DAILY [facility] Last Admin: 09/20/24 12:35 Dose: 1 each Nystatin (Nystatin 15 Gm Powder) 1 gm TOPICAL Q12H [facility] Last Admin: 09/20/24 12:35 Dose: 1 gm Ondansetron HCl (Ondansetron Hcl/Pf 4 Mg/2 Ml Vial) 4 mg INJ Q6H PRN PRN Reason: Nausea And Vomiting Pantoprazole Sodium (Pantoprazole Sodium 40 Mg Vial) 40 mg IVP DAILY [facility] Last Admin: 09/20/24 12:35 Dose: 40 mg Time Spent With Patient Time: Total time spent is greater than 50% in coordination of care (as documented) at patient's floor/unit and/or counseling patient: Time with patient: 25 - 35 minutes
[2024-09-21 05:17] LABS: Basophils%(Percent) Auto 0.5 (0.1-0.85); Eosinophils#(Absolute)Auto 0.2 (0.0-0.2); Eosinophils%(Percent) Auto 2.5 % (0.4-2.8); Granulocytes % - Auto 65.1 % (47.8-71.3); Granulocytes#(Absolute)- Auto 4.2 (2.3-6.0); Hematocrit 27.3 % (35.9-46.7); Mean Corpuscular Volume 87.9 fl (81.0-93.7); Monocytes #(Absolute)- Auto 0.2 (1.1-3.1); Monocytes %(Percent)- Auto 3.6 % (3.6-9.8); Platelet Count 203 K/uL (152-353); White Blood Count 6.4 K/uL (4.3-9.3)
[2024-09-21 08:52] VITALS: RESP 19
[2024-09-21] MEDS: ALBUMIN HUMAN 25% 100 ML IV ONE (10:12)
[2024-09-21 12:09] VITALS: BP 127/66; PULSE 92; TEMP 99.5
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
--- NOTE | 2024-09-23 14:59 | Echocardiogram Report ---
Study Quality: Good Indications / History: Unspecified atrial fibrillation. Diagnosis/CPT Code(s): TTE - 2D w/ or w/o M-Mode Complete (07060). Echo Dimensions Ao Root Yisel (M-Mode): 2.9 cm LA Dimen (M-Mode): 5.7 cm IVS(D) (M-Mode): 1.2 cm IVS(D) (2D): 0.9 cm LVPW(D) (M-Mode): 1.2 cm LVPW(D) (2D): 1.3 cm LV(D) (M-Mode): 4.89 cm LV(D) (2D): 5.3 cm LV(S) (M-Mode): 3.04 cm LV(S) (2D): 3.2 cm Asc Ao Yisel (2D): 2.7 cm RV(D (2D): 3.3 cm LVOT (2D): 2.2 cm AV opening (M-Mode): 1.6 cm EF (M-Mode): 66 % EF (2D): 70 % RVSP (Doppler): 75 mmHg Doppler ------- * Aortic Valve LVOT Peak Gradient: 3 mmHg. LVOT Peak Velocity: 0.92 m/s. LVOT Mean Grad: 2 mmHg. LVOT VTI: 21.8 cm. LVOT/AV VTI: 0.41. AV Peak Velocity: 2.3 m/s. AV Peak Gradient: 21 mmHg. AV Mean Gradient: 13 mmHg. AV VTI: 52.9 cm. * Mitral Valve MV Peak E Bhargav: 1.05 m/s. MV Peak A Bhargav: 0.76 m/s. E/A: 1.4. MV PHT: 37 ms. MV Dec T: 127 ms. * Diastolic Functions / TDI E/e' medial: 12.1. E/e' lateral: 11. E/e' average: 11.55. Peak e' medial bhargav: 8.7 cm/s. Peak e' lateral bhargav: 9.57 cm/s. * Tricuspid Valve RVSP: 75 mmHg. RA Pressure: 10 mmHg. TR Peak Grad: 65 mmHg. TV Regurg.Peak Bhargav: 4.02 m/s. Findings -------- Left Ventricle LV chamber and wall dimensions are normal. There is normal LV systolic function. There are no wall motion abnormalities. The estimated LV ejection fraction is normal at 65-70%. Right Ventricle There is normal right ventricular size, wall dimension, and systolic function. Left Atrium Left Atrium chamber is moderately to severely dilated. LA diameter is 5.7 cm. Right Atrium Right Atrium chamber is moderate severely dilated. Aortic Valve There is a trileaflet aortic valve. The aortic valve is mildly calcified. There is no aortic regurgitation. There is no aortic valve stenosis. Mitral Valve The mitral valve leaflet is mildly thickened. There is moderate mitral regurgitation. There is no mitral stenosis. Tricuspid Valve Tricuspid valve is structurally normal. There is moderate severe to severe tricuspid regurgitation. Estimated RVSP systolic pressure is 75 mmHg. Pulmonary Valve There is normal pulmonic valve structure and function. Pulmonic valve is not well visualized. There is no pulmonic regurgitation. Pericardium The pericardium is normal. There is no pericardial effusion present. Aorta The size of the visualized portion of aortic root is within normal limits. Aortic Root diameter (M-mode) is 2.9 cm. Thrombus/Mass There is no intracardiac mass or thrombus identified. Impressions * M-mode, 2-D echocardiogram is performed with cardiac doppler including, spectral doppler (continuous wave and pulse wave) and color flow. There is no evidence of intracavitary mass or thrombus. Right heart pressure is 75 mmHg. * Normal left ventricular size, wall thickness and systolic function. * No left ventricular wall motion abnormalities. * LVEF (normal): 65-70%. * Normal right ventricular size and function. * Moderate severe to severe left atrial enlargement. * Moderate severe right atrial enlargement. * Moderate mitral regurgitation. * Moderate severe to severe tricuspid regurgitation. * The size of the visualized portion of aortic root is within normal limits. * No pericardial effusion. * There are no prior studies available for comparison. Electronically signed by: Garry Moreno MD 09/23/2024 2:58 PM [facility]
== END 2024-09-21 16:11 | DRG 564 ==
LOC: MS 09:53 → ED 09:53 → OBSVTOIN 12:49 → MS 13:52
PROVIDERS: ADMIT Family Medicine; ATTEND Family Medicine
DX: T87.43 Infection of amputation stump, right lower extremity; G89.29 Other chronic pain; F41.9 Anxiety disorder, unspecified; I50.22 Chronic systolic (congestive) heart failure; E87.79 Other fluid overload; B96.20 Unspecified Escherichia coli [E. coli] as the cause of diseases classified elsewhere; J96.00 Acute respiratory failure, unspecified whether with hypoxia or hypercapnia; Z68.34 Body mass index [BMI] 34.0-34.9, adult; Z91.148 Patient's other noncompliance with medication regimen for other reason; I11.0 Hypertensive heart disease with heart failure; I48.91 Unspecified atrial fibrillation; Y92.009 Unspecified place in unspecified non-institutional (private) residence as the place of occurrence of the external cause; Y83.5 Amputation of limb(s) as the cause of abnormal reaction of the patient, or of later complication, without mention of misadventure at the time of the procedure; L03.116 Cellulitis of left lower limb; E66.01 Morbid (severe) obesity due to excess calories; F19.9 Other psychoactive substance use, unspecified; Z88.5 Allergy status to narcotic agent; R31.9 Hematuria, unspecified; I27.20 Pulmonary hypertension, unspecified; K21.00 Gastro-esophageal reflux disease with esophagitis, without bleeding; N39.0 Urinary tract infection, site not specified